=== PATIENT | male | born 1945 | race Caucasian/White ===

== ENCOUNTER → 2018-05-24 14:34 | Outpatient (CLI) | payer MEDICARE, OTHER, SELFPAY ==
--- NOTE | 2018-05-24 | DI.MRI.S_ITS ---
PROCEDURE: MR FEMUR LT WO CON INDICATIONS: Left inner thigh mass TECHNIQUE: Noncontrast coronal and sagittal T1 spin echo and STIR; axial T1 spin echo and T2 fast spin echo with fat saturation through the left femur. COMPARISON: None. FINDINGS: Image quality: Excellent. Bones: The visualized bone marrow demonstrates normal signal on all sequences. The overlying cortex appears intact. No fractures lines or intra-osseous lesions. Soft tissues: Within the left adductor camille, there is a large heterogeneous focus with T2 hyperintense/fluid, and fat signal intensity measuring 5.0 x 6.6 cm. Heterogeneous appearance of the upper aspect with possible small internal soft tissue nodules, image 22 series 4. This closely abuts the femoral vessels at the inferior aspect. IMPRESSION: Heterogeneous mass with T2 hyperintense and fat signal intensity, suspicious for liposarcoma especially given the complex nodular appearance of the upper aspect. This closely abuts the femoral vessels at the inferior aspect. At the upper aspect there is a preserved muscle plane between the mass and the femoral vessels. Further evaluation is recommended with contrast-enhanced study. Recommend oncologic surgical consultation. Dictated by: Nikolas Cedillo M.D. on 05/24/2018 at 16:54 Approved by: Nikolas Cedillo M.D. on 05/24/2018 at 16:59
== END ==
PROVIDERS: PCP Internal Medicine; Visit Provider Internal Medicine
DX: R22.42 Localized swelling, mass and lump, left lower limb (principal); M89.9 Disorder of bone, unspecified; R29.890 Loss of height
CPT/HCPCS: 73718; 77080

== ENCOUNTER 2018-06-16 15:19 | Emergency (ER) | payer MEDICARE, OTHER, SELFPAY ==
[2018-06-16 15:26] VITALS: BP 125/72; PULSE 66; RESP 15; TEMP 36.4; O2SAT 98; BMI 23.6
--- NOTE | 2018-06-16 15:39 | DI.CT.S_ITS ---
PROCEDURE: CT HEAD/BRAIN WO CON INDICATIONS: double vision x 2 days TECHNIQUE: Noncontrast 4.5 mm thick angled axial sections acquired from the foramen magnum to the vertex, with coronal and sagittal reformats. For radiation dose reduction, the following was used: automated exposure control, adjustment of mA and/or kV according to patient size. COMPARISON: None. FINDINGS: Image quality: Excellent. CSF spaces: Basal cisterns are patent. No extra-axial fluid collections. The ventricles are symmetric in size and shape. Brain: No intracranial bleeds or masses. There is mild cerebral volume loss for age, with resultant ventricular and sulcal prominence. There are mild periventricular and deep white matter chronic small vessel ischemic changes. There is intracranial internal carotid artery atherosclerosis. Skull and face: Calvarium and visualized facial bones appear intact, without suspicious lesions. Sinuses: Visualized sinuses and mastoids are clear. IMPRESSION: 1. No acute intracranial abnormalities. 2. Mild cerebral volume loss and chronic microvascular ischemic changes. Dictated by: Danny Rivero M.D. on 06/16/2018 at 16:19 Approved by: Danny Rivero M.D. on 06/16/2018 at 16:22
--- NOTE | 2018-06-16 16:01 | ED.EYEPROB ---
HPI - Eye Problem General Chief complaint: Eye Problems Stated complaint: DOUBLE VISION Time Seen by Provider: 06/16/18 15:27 Source: patient Mode of arrival: ambulatory Limitations: no limitations History of Present Illness HPI Narrative: Patient is a 78-year-old male who presents with sudden onset of double vision with both eyes open which resolves while closing 1 eye, it does not matter which are high. His this started 2 days ago it has been persistent. It started while he was reading the paper. He has no other focal deficits. He now has a slight headache which she has taken Tylenol for. chief complaint: vision change Related Data Allergies Allergy/AdvReac Type Severity Reaction Status Date / Time No Known Drug Allergies Allergy Verified 06/16/18 15:26 Review of Systems Review of Systems All systems reviewed & are unremarkable except as noted in HPI and below Constitutional Denies chills, Denies fever(s), Denies lethargy and Denies weakness Eyes Reports as per HPI Cardiovascular Denies chest pain, Denies irregular heart rhythm, Denies lightheadedness, Denies palpitations, Denies dyspnea, Denies dyspnea on exertion and Denies orthopnea Respiratory Denies cough, Denies dyspnea, Denies dyspnea on exertion and Denies wheezing Gastrointestinal Gastrointestinal: Denies abdominal pain, Denies change in bowel habits, Denies diarrhea, Denies nausea and Denies vomiting Musculoskeletal Denies back pain, Denies muscle weakness, Denies numbness and Denies tingling Integumentary/Breasts Denies pruritus, Denies erythema, Denies rash and Denies wounds Neurologic Denies numbness, Denies tingling and Denies weakness Endocrine Denies palpitations Allergic/Immunologic Denies wheezing [facility] Medical History Healthy adult (Acute) Social History Smoking Status: Never smoker Exam Initial Vital Signs Initial Vital Signs: Vital Signs Temperature 97.5 F L 06/16/18 15:26 Pulse Rate 66 06/16/18 15:26 Respiratory Rate 15 06/16/18 15:26 Blood Pressure 125/72 06/16/18 15:26 Pulse Oximetry 98 06/16/18 15:26 GENERAL: Alert cooperative male no acute distress HEENT: Head atraumatic,EOMI, pupils reactive, face symmetric, moist mucous membranes EYES: EOMI, JUVENCIO, pressure in left eye 20mm Hg, pressure in right eye 20mmHg, both eyes were stained with fluorescein no dye uptake CARDIOVASCULAR: Regular rate and rhythm without murmurs, rubs or gallops. RESPIRATORY: Breath sounds equal bilaterally, no wheezes rales or rhonchi. ABDOMEN: Soft, nontender. Normoactive bowel sounds all 4 quadrants. No guarding or rebound. EXTREMITIES: Normal range of motion, no clubbing or edema. Neurovascularly intact NEUROLOGICAL: Alert and oriented x4.Normal gait and speech. Cranial nerves II through XII grossly intact. Good hcwobf-ha-brxy, good nzpk-sm-hdtc, strength equal bilaterally, no dysarthria or aphasia, sensation in tact to soft touch bilaterally, no visual changes, no facial droop SKIN: Warm, dry, no laceration, no petechiae, no rashes or lesions. Scores NIH Stroke Scale Level of Conciousness: Alert, keenly responsive Ask month/age: Answers both questions correctly. Open/close eyes, close hand: Performs both tasks correctly Best gaze horizontal: Normal Visual avalos: No visual loss Facial palsy: Normal symetrical movement Left arm drift: No drift for full 10 sec Right arm drift: No drift for full 10 sec Left leg drift: No drift for full 10 sec Right leg drift: No drift for full 10 sec Limb ataxia: Absent Sensory on face/arms/legs: Normal, no sensory loss Best language: No aphasia, normal Dysarthria: Normal Extinction or inattention: No abnormality Total NIH Stroke scale score: 0 Course Orders Ordered: ED Orders 06/16/18 15:39 CT head/brain wo con Stat EKG-12 Lead Stat 06/16/18 16:00 Complete Blood Count AUTO DIFF Stat Comprehensive Metabolic Panel Stat Partial Thromboplastin Time Stat Prothrombin Time INR Stat Vital Signs - 8 hr 06/16/18 15:26 06/16/18 16:30 Temperature 97.5 F L Pulse Rate 66 62 Respiratory Rate 15 16 Blood Pressure 125/72 Blood Pressure [Left Arm] 125/70 Pulse Oximetry 98 98 MDM - Eye Problem Lab Data Attestation: I reviewed the patient's lab results. Result diagrams: 06/16/18 16:00 06/16/18 16:00 Lab Results 06/16/18 06/16/18 06/16/18 Range/Units 16:00 16:00 16:00 WBC 9.4 (4.5-11.0) X10^3/uL RBC 4.88 (4.5-5.9) X10^6/uL Hgb 15.8 (13.5-17.5) g/dL Hct 45.7 (41-53) % MCV 93.7 (80-100) fL MCH 32.4 (26-34) PG MCHC 34.6 (30-36) % RDW 13.7 (11.6-14.8) % Plt Count 210 (150-400) X10^3/uL Neut % (Auto) 69.6 (50-75) % Lymph % (Auto) 19.4 L (25-40) % [place] % (Auto) 8.1 (3-14) % Eos % (Auto) 2.2 (2-4) % Baso % (Auto) 0.7 (0-2) % Neut # (Auto) 6500 H (7964-2635) /uL PT 11.7 (10.1-12.7) SECONDS INR 1.1 (0.9-1.3) APTT 31 (26.4-36.2) SECONDS Sodium 142 (137-145) mmol/L Potassium 4.2 (3.4-5.1) mmol/L Chloride 107 (98-107) mmol/L Carbon Dioxide 25 (22-32) mmol/L BUN 24 H (9-20) mg/dL Creatinine 0.80 (0.66-1.25) mg/dL Estimated GFR > 60.0 (>60) mL/min BUN/Creatinine Ratio 30.0 H (6-22) Glucose 104 (80-110) mg/dL Calcium 9.6 (8.4-10.2) mg/dL Total Bilirubin 0.5 (0.2-1.3) mg/dL AST 26 (17-59) IU/L ALT 43 (21-72) IU/L Alkaline Phosphatase 71 (38-126) U/L Total Protein 6.7 (6.3-8.2) g/dL Albumin 4.2 (3.5-5.0) g/dL Globulin 2.5 (1.7-4.1) g/dL Albumin/Globulin Ratio 1.7 (1.0-2.8) Imaging Data CT scan - head: Radiologist's impression: PROCEDURE: CT HEAD/BRAIN WO CON INDICATIONS: double vision x 2 days TECHNIQUE: Noncontrast 4.5 mm thick angled axial sections acquired from the foramen magnum to the vertex, with coronal and sagittal reformats. For radiation dose reduction, the following was used: automated exposure control, adjustment of mA and/or kV according to patient size. COMPARISON: None. FINDINGS: Image quality: Excellent. CSF spaces: Basal cisterns are patent. No extra-axial fluid collections. The ventricles are symmetric in size and shape. Brain: No intracranial bleeds or masses. There is mild cerebral volume loss for age, with resultant ventricular and sulcal prominence. There are mild periventricular and deep white matter chronic small vessel ischemic changes. There is intracranial internal carotid artery atherosclerosis. Skull and face: Calvarium and visualized facial bones appear intact, without suspicious lesions. Sinuses: Visualized sinuses and mastoids are clear. IMPRESSION: 1. No acute intracranial abnormalities. 2. Mild cerebral volume loss and chronic microvascular ischemic changes. Dictated by: Danny Rivero M.D. on 06/16/2018 at 16:19 Approved by: Danny Rivero M.D. on 06/16/2018 at 16:22 ECG Data Attestation: I personally reviewed and interpreted this ECG as follows: Prior ECG tracings: not available for review Interpretation: Normal sinus rhythm rate [address] changes no T-wave inversions no sign of ischemia [place] 182 QRS 88 MDM Narrative Medical decision making narrative: Patient does not appear to have cranial nerve palsy no signs of retinal detachment pressure than eyes are equal. Head CT is negative. It does get better while 1 eye is closed. At this time recommend follow-up with Ophthalmology on Monday. Discharge Plan Departure Patient Disposition: Home Clinical Impression: Double vision with both eyes open Instructions: DI for Double Vision Activity Restrictions/Additional Instructions: *You have been diagnosed with double vision *What to do: Recommend you see Ophthalmology for further evaluation. At this time head CT and blood work within normal limits *Continue to take medications as directed *Follow up with your primary care provider in 2-3 days *Return to ER if you should have headache, extremity weakness, facial drooping or speech difficulty, any new, worsening or concerning symptoms Referrals: Teresa Rivero MD [Primary Care Provider] -
[2018-06-16 16:11] LABS: Add Manual Diff / Slide Review NO; Basophils Percent Auto 0.7 % (0-2); Eosinophils Percent Auto 2.2 % (2-4); Hematocrit 45.7 % (41-53); Hemoglobin 15.8 g/dL (13.5-17.5); Lymphocytes Percent Auto 19.4 % (25-40); Mean Corpuscular HGB Conc 34.6 % (30-36); Mean Corpuscular Hemoglobin 32.4 PG (26-34); Mean Corpuscular Volume 93.7 fL (80-100); Monocytes Percent Auto 8.1 % (3-14); Neutrophils Absolute Auto 6500 /uL (3000-5900); Neutrophils Percent Auto 69.6 % (50-75); Platelet Count 210 X10^3/uL (150-400); Red Blood Cell Count 4.88 X10^6/uL (4.5-5.9); Red Cell Distribution Width 13.7 % (11.6-14.8); White Blood Cell Count 9.4 X10^3/uL (4.5-11.0)
[2018-06-16 16:17] LABS: INR 1.1 (0.9-1.3); Prothrombin Time 11.7 SECONDS (10.1-12.7)
[2018-06-16 16:20] LABS: PTT Partial Thromboplastin Tim 31 SECONDS (26.4-36.2)
[2018-06-16 16:21] LABS: Alanine Aminotransferase 43 IU/L (21-72); Albumin 4.2 g/dL (3.5-5.0); Albumin Globulin Ratio 1.7 (1.0-2.8); Alkaline Phosphatase 71 U/L (38-126); Aspartate Aminotransferase 26 IU/L (17-59); Bilirubin Total 0.5 mg/dL (0.2-1.3); Blood Urea Nitrogen 24 mg/dL (9-20); Calcium 9.6 mg/dL (8.4-10.2); Carbon Dioxide 25 mmol/L (22-32); Chloride 107 mmol/L (98-107); Estimated Glomerular Filt Rate > 60.0 mL/min (>60); Globulin 2.5 g/dL (1.7-4.1); Glucose 104 mg/dL (80-110); HEMOLYSIS < 15 (0-50); Potassium 4.2 mmol/L (3.4-5.1); Sodium 142 mmol/L (137-145); Total Protein 6.7 g/dL (6.3-8.2)
[2018-06-16 16:30] VITALS: BP 125/70; PULSE 62; RESP 16; O2SAT 98
[2018-06-16] MEDS: PROPARACAINE 0.5% OPHTH SOL 1 DROPS EYE-BOTH (17:04)
[2018-06-16 17:23] VITALS: BP 134/75; PULSE 62; RESP 17; O2SAT 97
== END 2018-06-16 17:25 | disposition home or self-care (01) ==
PROVIDERS: Emergency Provider Emergency Medicine; PCP Internal Medicine
DX: H53.2 Diplopia (principal)
CPT/HCPCS: 36591; 70450; 80053; 85025; 85610; 85730; 93005; 99282; 99285

== ENCOUNTER → 2018-06-26 07:32 | Outpatient (CLI) | payer MEDICARE, OTHER, SELFPAY ==
--- NOTE | 2018-06-26 | DI.MRI.S_ITS ---
PROCEDURE: MR STROKE Pre- and post-contrast brain MRI, non-contrast brain MR angiogram, pre- and postcontrast neck MR angiogram INDICATIONS: DOUBLE VISION TECHNIQUE: Brain: Noncontrast axial T1 spin echo, axial T2 fast spin echo, sagittal and axial FLAIR, coronal T2 fast spin echo, axial gradient echo, axial diffusion and ADC through the brain. After the administration of contrast, axial 3D VIBE of the cranial vasculature and brain. Brain MRA: Non-contrast 3-D time of flight MR angiogram, with multiple ssshszf-eydvuwnva-riwgxofsbi (MIP) reformats performed. Neck MRA: Axial and sagittal TruFISP through the neck. Coronal dynamic MR angiogram during administration of contrast in the arterial and venous phases, with 3-dimenstional xxqotbv-unemkqjmb-rrwrmpuueg (MIP) reformats constructed from subtraction images. COMPARISON: [facility], CT, CT HEAD/BRAIN WO CON, 06/16/2018, 15:37. FINDINGS: Image quality: Excellent. BRAIN: The ventricular system and cortical sulci demonstrate atrophy, consistent for the patient's stated age. There are areas of increased T2/FLAIR signal intensity within the periventricular and subcortical white matter. There is no acute intra-or extra axial fluid collection. No acute hemorrhage, mass lesion or midline shift. Brainstem is unremarkable. There are no areas of restricted diffusion. Globes are symmetrical. Sinuses are aerated. Osseous structures are intact. BRAIN MR ANGIOGRAM: Anterior circulation: Intracranial internal carotid arteries are normal in size and enhancement. The flow within the paired anterior cerebral arteries is normal and symmetric. The flow within the middle cerebral arteries is normal and symmetric. The anterior communicating artery is seen. No stenoses, occlusions, or aneurysms. Posterior circulation: The visualized portions of the vertebral arteries demonstrate normal caliber, and join to form a normal appearing basilar artery. The flow within the posterior cerebral arteries is normal and symmetric. No stenoses, occlusions, or aneurysms. NECK MR ANGIOGRAM: The origins of the left and right common, left internal and bilateral external carotid arteries demonstrate no areas of hemodynamically significant stenosis, vascular occlusion or aneurysmal dilation. There is approximate 50% narrowing at the origin of the right internal carotid artery. Origins of the left and right vertebral arteries demonstrate no areas of hemodynamically significant stenosis, vascular occlusion or aneurysmal dilation. Aortic arch demonstrates conventional anatomy. Limited, visualized portions subclavian vasculature are unremarkable. IMPRESSION: 1. No acute intracranial process. No acute ischemia. 2. Moderate atrophy and chronic microvascular ischemic changes. 3. No areas of hemodynamically significant stenosis, vascular occlusion or aneurysmal dilation within the anterior or posterior circulation. 4. Approximate 50% stenosis of the origin of the right internal carotid artery. Dictated by: Mayelin Eng M.D. on 06/26/2018 at 12:33 Approved by: Mayelin Eng M.D. on 06/26/2018 at 12:38
== END ==
PROVIDERS: PCP Internal Medicine; Visit Provider Physician Assistant
DX: H53.2 Diplopia (principal); I65.21 Occlusion and stenosis of right carotid artery
CPT/HCPCS: 70553

== ENCOUNTER → 2018-07-05 09:03 | Outpatient (CLI) | payer MEDICARE, OTHER, SELFPAY ==
[2018-07-05 10:40] LABS: Alanine Aminotransferase 36 IU/L (21-72); Aspartate Aminotransferase 27 IU/L (17-59); BUN Creatinine Ratio 28.8 (6-22); Blood Urea Nitrogen 23 mg/dL (9-20); Calcium 9.8 mg/dL (8.4-10.2); Carbon Dioxide 28 mmol/L (22-32); Chloride 104 mmol/L (98-107); Cholesterol 152 mg/dL (140-199); Estimated Glomerular Filt Rate > 60.0 mL/min (>60); Glucose 98 mg/dL (80-110); HDL Cholesterol 65 mg/dL (40-60); HEMOLYSIS < 15 (0-50); LDL Cholesterol Calculated 75 mg/dL (<100); Sodium 143 mmol/L (137-145); Triglycerides 62 mg/dL (35-150)
== END ==
PROVIDERS: PCP Internal Medicine; Visit Provider Internal Medicine
DX: Z00.00 Encounter for general adult medical examination without abnormal findings (principal); E78.5 Hyperlipidemia, unspecified
CPT/HCPCS: 36415; 80048; 80061; 84450; 84460; G0103

== ENCOUNTER → 2019-01-03 08:53 | Outpatient (CLI) | payer MEDICARE, OTHER, SELFPAY ==
[2019-01-03 09:51] LABS: Alanine Aminotransferase 36 IU/L (21-72); Aspartate Aminotransferase 29 IU/L (17-59); Cholesterol 133 mg/dL (140-199); HDL Cholesterol 54 mg/dL (40-60); LDL Cholesterol Calculated 69 mg/dL (<100); Triglycerides 50 mg/dL (35-150)
== END ==
PROVIDERS: PCP Internal Medicine; Visit Provider Internal Medicine
DX: E78.5 Hyperlipidemia, unspecified (principal)
CPT/HCPCS: 36415; 80061; 84450; 84460

== ENCOUNTER → 2019-07-12 07:52 | Outpatient (CLI) | payer MEDICARE, OTHER, SELFPAY ==
[2019-07-12 09:05] LABS: Alanine Aminotransferase 52 IU/L (<50); Aspartate Aminotransferase 34 IU/L (17-59); BUN Creatinine Ratio 27.5 (6-22); Blood Urea Nitrogen 22 mg/dL (9-20); Calcium 9.5 mg/dL (8.4-10.2); Carbon Dioxide 29 mmol/L (22-32); Chloride 102 mmol/L (98-107); Cholesterol 154 mg/dL (140-199); Estimated Glomerular Filt Rate > 60.0 mL/min (>60); Glucose 96 mg/dL (80-110); HDL Cholesterol 51 mg/dL (40-60); HEMOLYSIS < 15 (0-50); LDL Cholesterol Calculated 90 mg/dL (<100); Potassium 4.9 mmol/L (3.4-5.1); Sodium 138 mmol/L (137-145); Triglycerides 63 mg/dL (35-150)
[2019-07-16 10:59] LABS: PSA Post Prostatectomy 1.11 ng/mL
== END ==
PROVIDERS: PCP Internal Medicine; Visit Provider Internal Medicine
DX: Z13.1 Encounter for screening for diabetes mellitus (principal); Z12.5 Encounter for screening for malignant neoplasm of prostate; E78.5 Hyperlipidemia, unspecified
CPT/HCPCS: 36415; 80048; 80061; 84153; 84450; 84460; G0103

== ENCOUNTER → 2019-09-04 12:31 | Outpatient (CLI) | payer MEDICARE, OTHER, SELFPAY ==
--- NOTE | 2019-09-04 | DI.RAD.S_ITS ---
PROCEDURE: XR PELVIS 1-2V INDICATIONS: Pelvic Pain TECHNIQUE: Single frontal view of the pelvis acquired. COMPARISON: None. FINDINGS: Bones: No fractures or dislocations. No suspicious bony lesions. Soft tissues: Visualized bowel gas pattern is normal. No suspicious soft tissue calcifications. IMPRESSION: Right greater than left mild to moderate degenerative hip joint space narrowing. No significant osteophytic spurring or effusion/loose body. Dictated by: Rainer Zamorano M.D. on 09/04/2019 at 13:01 Approved by: Rainer Zamorano M.D. on 09/04/2019 at 13:02
== END ==
PROVIDERS: PCP Internal Medicine; Referring Provider Internal Medicine; Visit Provider Internal Medicine
DX: R10.2 Pelvic and perineal pain (principal); M16.0 Bilateral primary osteoarthritis of hip
CPT/HCPCS: 72170

== ENCOUNTER → 2020-12-04 19:20 | Outpatient (ROUT) | payer MEDICARE, OTHER, SELFPAY ==
[2020-12-04 20:00] LABS: Alanine Aminotransferase 44 IU/L (<50); Albumin 4.1 g/dL (3.5-5.0); Albumin Globulin Ratio 1.6 (1.0-2.8); Alkaline Phosphatase 84 U/L (38-126); Aspartate Aminotransferase 40 IU/L (17-59); Bilirubin Total 0.5 mg/dL (0.2-1.3); Blood Urea Nitrogen 19 mg/dL (9-20); Calcium 9.6 mg/dL (8.4-10.2); Carbon Dioxide 29 mmol/L (22-32); Chloride 104 mmol/L (98-107); Cholesterol 156 mg/dL (140-199); Estimated Glomerular Filt Rate > 60.0 mL/min (>60); Globulin 2.6 g/dL (1.7-4.1); Glucose 85 mg/dL (80-110); HDL Cholesterol 60 mg/dL (40-60); HEMOLYSIS < 15 (0-50); LDL Cholesterol Calculated 86 mg/dL (<100); Potassium 5.2 mmol/L (3.4-5.1); Sodium 140 mmol/L (137-145); Total Protein 6.7 g/dL (6.3-8.2); Triglycerides 51 mg/dL (35-150)
[2020-12-08 05:37] LABS: PSA Free % 27.9 % (.); PSA, Total 1.4 ng/mL (0.0-4.0)
== END ==
PROVIDERS: PCP Internal Medicine; Visit Provider Internal Medicine
DX: E78.5 Hyperlipidemia, unspecified (principal); Z12.5 Encounter for screening for malignant neoplasm of prostate
CPT/HCPCS: 80053; 80061; 84153; 84154

== ENCOUNTER → 2020-12-08 08:06 | Outpatient (CLI) | payer MEDICARE, OTHER, SELFPAY ==
--- NOTE | 2020-12-08 | DI.US.S_ITS ---
PROCEDURE: US CAROTID DOPPLER BI INDICATIONS: OCCLUSION AND STENOSIS OF CAROTID ARTERIES TECHNIQUE: Color and pulse Doppler interrogation was performed of both carotid systems, with image documentation and velocity measurements. COMPARISON: None. FINDINGS: Stenosis calculations are based on SRU (Society of Radiologists in Ultrasound) criteria. The flow velocities and the arterial waveforms are normal within both carotid arterial systems. Atherosclerotic plaque is seen on both sides. The estimated degree of internal carotid artery stenosis is less than 50%. Antegrade flow is confirmed within both vertebral arteries. Incidental note is made of several thyroid nodules, with the following imaging characteristics: Left mid thyroid: 7 x 6 x 5 mm Hypoechoic, solid-appearing, smooth borders, without calcifications Right mid thyroid, 7 x 7 x 4 mm, hypoechoic, solid-appearing with smooth borders and no calcification new line right inferior thyroid, 8 x 10 x 6 mm, isoechoic/hypoechoic, solid-appearing, smooth borders, no calcification Right superior thyroid, 6 x 4 x 3 mm hypoechoic, solid-appearing, smooth borders, without calcification Each of these thyroid nodules is wider than tall. IMPRESSION: No hemodynamically significant stenosis is seen. Atherosclerotic plaque is noted bilaterally. For thyroid nodules are incidentally noted. By published criteria, no specific imaging follow-up would be recommended. However, attention should be paid to these nodules on any future follow-up studies through the region. Dictated by: Izaiah Mcdaniel M.D. on 12/08/2020 at 10:54 Approved by: Izaiah Mcdaniel M.D. on 12/08/2020 at 10:58
== END ==
PROVIDERS: PCP Internal Medicine; Referring Provider Internal Medicine; Visit Provider Internal Medicine
DX: I65.23 Occlusion and stenosis of bilateral carotid arteries (principal); E04.2 Nontoxic multinodular goiter
CPT/HCPCS: 93880

== ENCOUNTER → 2022-09-14 11:45 | Outpatient (CLI) | payer MEDICARE, OTHER, SELFPAY ==
--- NOTE | 2022-09-14 | DI.RAD.S_ITS ---
PROCEDURE: XR LUMBAR SPINE 2-3V INDICATIONS: low back pain without sciatica TECHNIQUE: 3 views of the lumbar spine were acquired. COMPARISON: None. FINDINGS: Bones: 5 rtc-bve-feaariy vertebrae are present. There is mild levoscoliosis of thoracolumbar spine with apex at L4-5 level. Loss of disc height, degenerative endplate changes and bilateral facet arthrosis throughout lumbar spine is seen. Partial bony union at L3-4 level is noted. No vertebral body compression fractures. No suspicious bony lesions. Soft tissues: Overlying bowel gas pattern is normal. No suspicious soft tissue calcifications. 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 No acute compression fracture or significant spondylolisthesis. Partial bony fusion at L3-4 level. Dictated by: Mayank Noriega M.D. on 09/14/2022 at 14:28 Approved by: Mayank Noriega M.D. on 09/14/2022 at 14:29
== END ==
PROVIDERS: PCP Internal Medicine; Referring Provider Internal Medicine; Visit Provider Internal Medicine
DX: M51.36 Other intervertebral disc degeneration, lumbar region (principal); M43.26 Fusion of spine, lumbar region; M54.50 Low back pain, unspecified
CPT/HCPCS: 72100

== ENCOUNTER 2022-12-31 12:50 | Emergency (ER) | payer MEDICARE, OTHER, SELFPAY ==
[2022-12-31 12:58] VITALS: BP 171/74; PULSE 64; RESP 14; TEMP 36.1; O2SAT 99; BMI 25.8
--- NOTE | 2022-12-31 13:03 | DI.RAD.S_ITS ---
PROCEDURE: XR CHEST 1V INDICATIONS: chest pain TECHNIQUE: One view of the chest was acquired. COMPARISON: None. FINDINGS: Surgical changes and devices: None. Lungs and pleura: Lungs are clear. No pleural effusions or pneumothorax. Mediastinum: Mediastinal contours appear normal. Heart size is normal. Bones and chest wall: No suspicious bony lesions. Degenerative changes without acute osseous abnormality. Overlying soft tissues appear unremarkable. IMPRESSION: No evidence of an acute cardiopulmonary abnormality. Dictated by: Jerrell Ramirez D.O. on 12/31/2022 at 12:57 Approved by: Jerrell Ramirez D.O. on 12/31/2022 at 12:58
[2022-12-31 14:08] LABS: Alanine Aminotransferase 38 IU/L (<50); Albumin 4.5 g/dL (3.5-5.0); Albumin Globulin Ratio 1.6 (1.0-2.8); Alkaline Phosphatase 101 U/L (38-126); Aspartate Aminotransferase 26 IU/L (17-59); BUN Creatinine Ratio 32.1 (6-22); Bilirubin Total 0.7 mg/dL (0.2-1.3); Blood Urea Nitrogen 25 mg/dL (9-20); Calcium 9.3 mg/dL (8.4-10.2); Carbon Dioxide 28 mmol/L (22-32); Chloride 104 mmol/L (98-107); Creatine Kinase 94 U/L (55-170); Estimated Glomerular Filt Rate > 60 mL/min (>60); Globulin 2.9 g/dL (1.7-4.1); Glucose 132 mg/dL (80-110); HEMOLYSIS < 15 (0-50); Lipase 102 U/L (23-300); Magnesium 2.1 mg/dL (1.6-2.3); Potassium 4.3 mmol/L (3.4-5.1); Sodium 139 mmol/L (137-145); Total Protein 7.4 g/dL (6.3-8.2)
[2022-12-31 14:09] LABS: INR 1.1 (0.9-1.3); Prothrombin Time 12.1 SECONDS (10.1-12.7)
[2022-12-31 14:11] LABS: PTT Partial Thromboplastin Tim 31 SECONDS (26-36)
[2022-12-31 14:12] LABS: Add Manual Diff / Slide Review NO; Basophils Absolute Auto 100 /uL (0-100); Basophils Percent Auto 0.6 % (0-2); Eosinophils Absolute Auto 200 /uL (0-450); Eosinophils Percent Auto 2.1 % (2-4); Hematocrit 45.8 % (41-53); Hemoglobin 15.6 g/dL (13.5-17.5); Lymphocytes Absolute Auto 1300 /uL (1100-4500); Lymphocytes Percent Auto 13.3 % (25-40); Mean Corpuscular Hemoglobin 31.7 PG (26-34); Mean Corpuscular Volume 93.4 fL (80-100); Monocytes Absolute Auto 500 /uL (0-900); Monocytes Percent Auto 5.4 % (3-14); Neutrophils Absolute Auto 7900 /uL (1500-7000); Neutrophils Percent Auto 78.6 % (50-75); Platelet Count 218 X10^3/uL (150-400); Red Blood Cell Count 4.91 X10^6/uL (4.5-5.9); Red Cell Distribution Width 13.8 % (11.6-14.8)
[2022-12-31 14:19] LABS: Troponin I < 0.012 ng/mL (0.01-0.034)
--- NOTE | 2022-12-31 16:19 | ED.DIZZY ---
HPI - Dizziness <JAMES Gibbs - Last Filed: 12/31/22 18:33> General Chief Complaint: Dizziness Stated Complaint: vomiting, dizzy Time Seen by Provider: 12/31/22 16:18 Source: patient Mode of arrival: Ambulatory History of Present Illness HPI Narrative: 77-year-old male, never smoker, presents to the emergency department after developing rapid onset dizziness with subsequent nausea and vomiting since 11:30 a.m. today. Symptoms worsen with body movement. Patient had similar episodes in the past that was not diagnosed as BPPV but was treated with physical therapy exercises, that he continues to use daily. 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 Patient and spouse would like to a head CT as symptoms just started. Patient denies any blurry vision, headache pain, recent illness or trauma to his head. Hx of carotid artery occlusion. Related Data Allergies Allergy/AdvReac Type Severity Reaction Status Date / Time No Known Drug Allergies Allergy Verified 12/31/22 12:58 Review of Systems <JAMES Gibbs - Last Filed: 12/31/22 18:33> Review of Systems Narrative: Narrative: See HPI. GENERAL: Denies chills, fatigue, fever, sweats. HEENT: Denies sinus pain, ear pain, sore throat, difficulty swallowing. RESPIRATORY: Denies dyspnea, cough, wheezing, sputum. CARDIOVASCULAR: Denies chest pain, palpitations, edema. GASTROINTESTINAL: Denies nausea, vomiting, abdominal pain, diarrhea, constipation. : Denies dysuria, frequency, incontinence, hematuria, urinary retention, flank pain. MSK: Denies weakness, joint pain, or bony pain. SKIN: Denies rash, skin lesions, or pruritis. NEUROLOGIC: Denies weakness, headache, numbness, confusion. Endorses dizziness. PSYCHIATRIC: No concerning psychosocial issues. Patient History <JAMES Gibbs - Last Filed: 12/31/22 18:33> Medical History Healthy adult Social History Smoking Status: Never smoker Smoking Status: Never smoker alcohol intake frequency: 0-2 drinks per day Substance Use Type: does not use Exam <JAMES Gibbs - Last Filed: 12/31/22 18:33> Narrative Exam Narrative: Exam Narrative: GENERAL: This is a well-nourished, well-developed patient, in no acute distress. HEAD: Atraumatic. Normocephalic. EYES: Pupils equal round and reactive. Extraocular motions intact. No scleral icterus, injection or drainage. ENT: Nose without bleeding, purulent drainage. Throat without erythema, tonsillar hypertrophy or exudate. Uvula midline. Airway patent. TMs and canals clear. No sinus tenderness. NECK: Trachea midline. No JVD. CARDIOVASCULAR: Regular rate and rhythm without murmurs, peripheral pulses intact, cap refill <2 sec. RESPIRATORY: Breath sounds equal and clear bilaterally. No wheezes, rales, or rhonchi. No cough. No increased respiratory effort. No accessory muscle use. GASTROINTESTINAL: Abdomen soft, non-tender, nondistended without guarding or rebound. No suprapubic pain. MSK: Moves all extremities. Normal range of motion, no clubbing or edema. Neurovascularly intact. NEURO: A&O x 3. Positive Peyton-Hallpike with emesis. Judy maneuver conducted without improvement of symptoms. SKIN: Warm, dry, no rashes or lesions noted. Initial Vital Signs Initial Vital Signs: Vital Signs Temperature 97.0 F L 12/31/22 12:58 Pulse Rate 64 12/31/22 12:58 Respiratory Rate 14 12/31/22 12:58 Blood Pressure 171/74 H 12/31/22 12:58 Pulse Oximetry 99 12/31/22 12:58 Oxygen Delivery Method Room Air 12/31/22 12:58 Reviewed <Marion Fonseca DO - Last Filed: 01/01/23 07:37> Initial Vital Signs Initial Vital Signs: Vital Signs Temperature 97.0 F L 12/31/22 12:58 Pulse Rate 64 12/31/22 12:58 Respiratory Rate 14 12/31/22 12:58 Blood Pressure 171/74 H 12/31/22 12:58 Pulse Oximetry 99 12/31/22 12:58 Oxygen Delivery Method Room Air 12/31/22 12:58 Course <JAMES Gibbs - Last Filed: 12/31/22 18:33> Orders Ordered: Discontinued Medications Aspirin (Aspirin 81 Mg Chew Tab) 324 mg PO NOW ONE Stop: 12/31/22 13:04 Last Admin: 12/31/22 14:39 Dose: Not Given Documented By: SUZIE Sodium Chloride (Normal Saline 0.9%) 1,000 mls @ 1,000 mls/hr IV BOLUS ONE Stop: 12/31/22 18:22 Last Admin: 12/31/22 17:58 Dose: 1,000 mls/hr Documented By: MARITA Meclizine HCl (Meclizine Hcl 12.5 Mg Tablet) 50 mg PO NOW ONE Stop: 12/31/22 17:23 Last Admin: 12/31/22 17:58 Dose: 50 mg Documented By: MARITA Ondansetron HCl (Ondansetron 4 Mg Odt) 4 mg SL NOW ONE Stop: 12/31/22 17:23 Last Admin: 12/31/22 17:57 Dose: 4 mg Documented By: MARITA Ondansetron HCl (Ondansetron 4 Mg Odt Prepack) 1 bottle MISC SEEINSTR ONE Stop: 12/31/22 18:30 Last Admin: 12/31/22 18:36 Dose: 1 bottle Documented By: MARITA Vital Signs Vital signs: Vital Signs - 8 hr 12/31/22 12:58 12/31/22 18:08 Temperature 97.0 F L Pulse Rate 64 66 Respiratory Rate 14 18 Blood Pressure 171/74 H 178/84 H Pulse Oximetry 99 99 Oxygen Delivery Method Room Air Room Air <Marion Fonseca DO - Last Filed: 01/01/23 07:37> Orders Ordered: Discontinued Medications Aspirin (Aspirin 81 Mg Chew Tab) 324 mg PO NOW ONE Stop: 12/31/22 13:04 Last Admin: 12/31/22 14:39 Dose: Not Given Documented By: SUZIE Sodium Chloride (Normal Saline 0.9%) 1,000 mls @ 1,000 mls/hr IV BOLUS ONE Stop: 12/31/22 18:22 Last Admin: 12/31/22 17:58 Dose: 1,000 mls/hr Documented By: MARITA Meclizine HCl (Meclizine Hcl 12.5 Mg Tablet) 50 mg PO NOW ONE Stop: 12/31/22 17:23 Last Admin: 12/31/22 17:58 Dose: 50 mg Documented By: MARITA Ondansetron HCl (Ondansetron 4 Mg Odt) 4 mg SL NOW ONE Stop: 12/31/22 17:23 Last Admin: 12/31/22 17:57 Dose: 4 mg Documented By: MARITA Ondansetron HCl (Ondansetron 4 Mg Odt Prepack) 1 bottle MISC SEEINSTR ONE Stop: 12/31/22 18:30 Last Admin: 12/31/22 18:36 Dose: 1 bottle Documented By: RL Vital Signs Vital signs: Vital Signs - 8 hr 12/31/22 12:58 12/31/22 18:08 Temperature 97.0 F L Pulse Rate 64 66 Respiratory Rate 14 18 Blood Pressure 171/74 H 178/84 H Pulse Oximetry 99 99 Oxygen Delivery Method Room Air Room Air MDM - Dizziness <JAMES Gibbs - Last Filed: 12/31/22 18:33> Differential Diagnosis Differential diagnosis: Likely benign paroxysmal positional vertigo; Unlikely cerebrovascular accident, transient cerebral ischemia or other (Otitis media, ear effusion) Lab Data 12/31/22 13:45 12/31/22 13:45 Labs: Lab Results 12/31/22 12/31/22 12/31/22 Range/Units 13:45 13:45 13:45 WBC 10.0 (4.5-11.0) X10^3/uL RBC 4.91 (4.5-5.9) X10^6/uL Hgb 15.6 (13.5-17.5) g/dL Hct 45.8 (41-53) % MCV 93.4 (80-100) fL MCH 31.7 (26-34) PG MCHC 34.0 (30-36) % RDW 13.8 (11.6-14.8) % Plt Count 218 (150-400) X10^3/uL Neut % (Auto) 78.6 H (50-75) % Lymph % (Auto) 13.3 L (25-40) % [place] % (Auto) 5.4 (3-14) % Eos % (Auto) 2.1 (2-4) % Baso % (Auto) 0.6 (0-2) % Neut # (Auto) 7900 H (0677-9229) /uL Lymph # (Auto) 1300 (2460-9648) /uL [place] # (Auto) 500 (0-900) /uL Eos # (Auto) 200 (0-450) /uL Baso # (Auto) 100 (0-100) /uL PT 12.1 (10.1-12.7) SECONDS INR 1.1 (0.9-1.3) APTT 31 (26-36) SECONDS Sodium 139 (137-145) mmol/L Potassium 4.3 (3.4-5.1) mmol/L Chloride 104 (98-107) mmol/L Carbon Dioxide 28 (22-32) mmol/L BUN 25 H (9-20) mg/dL Creatinine 0.78 (0.66-1.25) mg/dL Estimated GFR > 60 (>60) mL/min BUN/Creatinine Ratio 32.1 H (6-22) Glucose 132 H (80-110) mg/dL Calcium 9.3 (8.4-10.2) mg/dL Magnesium 2.1 (1.6-2.3) mg/dL Total Bilirubin 0.7 (0.2-1.3) mg/dL AST 26 (17-59) IU/L ALT 38 (<50) IU/L Alkaline Phosphatase 101 (38-126) U/L Total Creatine Kinase 94 (55-170) U/L CK-MB (CK-2) TNP CK-MB (CK-2) Rel Index TNP Troponin I < 0.012 (0.01-0.034) ng/mL Total Protein 7.4 (6.3-8.2) g/dL Albumin 4.5 (3.5-5.0) g/dL Globulin 2.9 (1.7-4.1) g/dL Albumin/Globulin Ratio 1.6 (1.0-2.8) Lipase 102 (23-300) U/L Urine Dip Bedside Urine Glucose 1000 mg/dl Bedside Urine Bilirubin - Negative Bedside Urine Ketone +/- 5 Urine Specific [place] 1.015 Bedside Urine Occult Blood - Negative Bedside Urine pH 7.5 Bedside Urine Protein - Negative Bedside Urine Urobilinogen - Negative Bedside Urine Nitrite - Negative Bedside Urine Leukocytes - Negative Esterase Imaging Data Chest x-ray: Radiologist's Impression: [address] [address] XRay Report Signed Patient: Micah Banegas MR#: [id number] : 1945 Acct:[id number] Age/Sex: 77 / M Date of Service: 12/31/22 Loc: ED Accession Number: [id number] ?? Procedure: XR chest 1V Ordering Provider: Marion Fonseca D.O. PROCEDURE:? XR CHEST 1V ? INDICATIONS:? chest pain ? TECHNIQUE:? One view of the chest was acquired.? ? COMPARISON:? None. ? FINDINGS:? ? Surgical changes and devices:? None.? ? Lungs and pleura:? Lungs are clear.? No pleural effusions or pneumothorax.? ? Mediastinum:? Mediastinal contours appear normal.? Heart size is normal.? ? Bones and chest wall:? No suspicious bony lesions.? Degenerative changes without acute osseous abnormality.? Overlying soft tissues appear unremarkable.? ? IMPRESSION:? ? No evidence of an acute cardiopulmonary abnormality. ? ? Dictated by: Jerrell Ramirez D.O. on 12/31/2022 at 12:57 ? ? Approved by: Jerrell Ramirez D.O. on 12/31/2022 at 12:58 ? CT scan - head: Radiologist's Impression: [place] [address] CT Scan Report Signed Patient: Micah Banegas MR#: [id number] : 1945 Acct:[id number] Age/Sex: 77 / M Date of Service: 12/31/22 Loc: ED Accession Number: [id number] ?? Procedure: CT head/brain wo con Ordering Provider: Michele Burdick PROCEDURE:? CT HEAD/BRAIN WO CON ? INDICATIONS:? Dizziness ? TECHNIQUE:? Noncontrast 4.5 mm thick angled axial sections acquired from the foramen magnum to the vertex, with coronal and sagittal reformats.? For radiation dose reduction, the following was used:? automated exposure control, adjustment of mA and/or kV according to patient size.? ? COMPARISON:? [facility], CT, CT HEAD/BRAIN WO CON, 06/16/2018, 15:37. ? FINDINGS:? Image quality:? Excellent.? ? CSF spaces:? Basal cisterns are patent.? No extra-axial fluid collections.? The ventricles are symmetric in size and shape.? ? Brain:? No intracranial bleeds or masses.? There is cerebral volume loss for age, with resultant ventricular and sulcal prominence.? There are periventricular and deep white matter chronic small vessel ischemic changes.? There is intracranial internal carotid artery atherosclerosis.? ? Skull and face:? Calvarium and visualized facial bones appear intact, without suspicious lesions.? ? Sinuses:? Stable postsurgical changes of the paranasal sinuses with mild mucosal thickening of the imaged maxillary sinuses. ? IMPRESSION:? ? Stable senescent changes with mild microvascular ischemic changes.? No acute abnormality. ? Postsurgical changes of the paranasal sinuses with mild mucosal disease of the maxillary sinuses. ? ? Dictated by: Jerrell Ramirez D.O. on 12/31/2022 at 15:53 ? ? Approved by: Jerrell Ramirez D.O. on 12/31/2022 at 15:56 ? CT Angio head and neck: Radiologist's Impression: [place] [address] CT Scan Report Signed Patient: Micah Banegas MR#: [id number] : 1945 Acct:[id number] Age/Sex: 77 / M Date of Service: 12/31/22 Loc: ED Accession Number: [id number] ?? Procedure: CT angio head and neck Ordering Provider: Michele Burdick PROCEDURE:? CT ANGIO HEAD AND NECK ? INDICATIONS:? Dizziness/ hx of carotid occlusion ? TECHNIQUE:? ? After the administration of intravenous contrast, 1 mm thick sections acquired from the aortic arch through the [place] of Segura.? Post-contrast 4.5 mm thick sections then re-acquired from the foramen magnum to the vertex.? 3-dimensional yinanvj-jnwcnuwuq-gyfnosxshr (MIP) and/or volume rendering reformats were acquired of the central intracranial vasculature and neck separately. For radiation dose reduction, the following was used:? automated exposure control, adjustment of mA and/or kV according to patient size.? ? COMPARISON:? [facility], CT, CT HEAD/BRAIN WO CON, 12/31/2022, 16:43. ? FINDINGS:? Image quality:? Excellent.? ? BRAIN:? CSF spaces:? Ventricles are normal in size and shape.? Basal cisterns are patent.? No extra-axial fluid collections.? ? Brain:? No midline shift.? No intracranial bleeds or masses.? Iniguez-white matter interface appears intact.? No area of abnormal intracranial enhancement ? Skull and face:? Calvarium and facial bones appear intact, without suspicious lesions.? Orbits appear normal.? ? Sinuses:? Postsurgical changes in bilateral maxillary sinuses are again seen with mucosal thickening in left maxillary sinus. ? HEAD CT ANGIOGRAPHY:? Anterior circulation:? Intracranial internal carotid arteries are normal in size and flow.? The flow within the paired anterior cerebral arteries is normal and symmetric.? The flow within the middle cerebral arteries is normal and symmetric.? The anterior communicating artery is seen.? No aneurysms are seen.? ? Posterior circulation:? Visualized portions of the vertebral arteries demonstrate normal caliber, and join to form a normal appearing basilar artery.? Flow within the posterior cerebral arteries is normal and symmetric.? No aneurysms are seen.? ? NECK CT ANGIOGRAPHY:? Carotid system:? The great vessels demonstrate a conventional anatomy as they arise from the aortic arch.? The origins of the common carotid arteries appear patent.? The common carotid arteries demonstrate normal caliber and courses.? The bifurcation regions are both widely patent.? The internal carotid arteries demonstrate normal calibers and courses.? ? Posterior circulation:? The origins of the vertebral arteries both appear widely patent.? The more superior extracranial portions of both vertebral arteries also demonstrate normal courses and calibers.? They join to form a normal appearing basilar artery.? ? Soft tissues:? Visualized neck soft tissues demonstrate no suspicious abnormalities.? ? Bones:? No suspicious bony lesions.? Visualized cervical spine appears normally aligned.? IMPRESSION:? ? 1. No CT evidence of acute intracranial abnormalities.? No area of abnormal contrast enhancement. ? 2.? Postsurgical changes in bilateral maxillary sinuses with mucosal thickening and fluid in left maxillary sinus. ? 3. No hemodynamically significant stenosis or aneurysm is seen in the visualized intracranial circulation. ? 4. No hemodynamically significant stenosis is seen in bilateral neck arteries.? ? Any quantitative measurements of stenosis were performed using NASCET criteria.? ? ? Dictated by: Mayank Noriega M.D. on 12/31/2022 at 18:04 ? ? Approved by: Mayank Noriega M.D. on 12/31/2022 at 18:07? MDM Narrative Medical decision making narrative: 77-year-old male rapid onset dizziness since this afternoon. Assessment was encouraging. Labs were non concerning and chest x-ray was normal. Per patient and spouse request, obtained a head CT to rule out bleeding or stroke. CT was normal. Positive [place]-Hallpike with emesis and no improvement after Judy maneuver. Patient given ondansetron, meclizine and IV fluids with improved symptoms. CT Angio ordered d/t hx of carotid artery occlusion, which was non concerning. Will discharge patient home with Zofran and instructions to maintain proper oral hydration and take the rbeo-bsp-jzfaqij Dramamine for dizziness. Instructed patient to follow up with his family doctor as needed. Instructed patient and spouse to return to the emergency department for any worsening symptoms that include blurry vision, chest pain, shortness of breath or intolerable pain. Patient and spouse verbalized understanding and were agreeable with course of action. <Marion Fonseca, DO - Last Filed: 01/01/23 07:37> Lab Data Labs: Lab Results 12/31/22 12/31/22 12/31/22 Range/Units 13:45 13:45 13:45 WBC 10.0 (4.5-11.0) X10^3/uL RBC 4.91 (4.5-5.9) X10^6/uL Hgb 15.6 (13.5-17.5) g/dL Hct 45.8 (41-53) % MCV 93.4 (80-100) fL MCH 31.7 (26-34) PG MCHC 34.0 (30-36) % RDW 13.8 (11.6-14.8) % Plt Count 218 (150-400) X10^3/uL Neut % (Auto) 78.6 H (50-75) % Lymph % (Auto) 13.3 L (25-40) % [place] % (Auto) 5.4 (3-14) % Eos % (Auto) 2.1 (2-4) % Baso % (Auto) 0.6 (0-2) % Neut # (Auto) 7900 H (7824-1617) /uL Lymph # (Auto) 1300 (8979-3896) /uL [place] # (Auto) 500 (0-900) /uL Eos # (Auto) 200 (0-450) /uL Baso # (Auto) 100 (0-100) /uL PT 12.1 (10.1-12.7) SECONDS INR 1.1 (0.9-1.3) APTT 31 (26-36) SECONDS Sodium 139 (137-145) mmol/L Potassium 4.3 (3.4-5.1) mmol/L Chloride 104 (98-107) mmol/L Carbon Dioxide 28 (22-32) mmol/L BUN 25 H (9-20) mg/dL Creatinine 0.78 (0.66-1.25) mg/dL Estimated GFR > 60 (>60) mL/min BUN/Creatinine Ratio 32.1 H (6-22) Glucose 132 H (80-110) mg/dL Calcium 9.3 (8.4-10.2) mg/dL Magnesium 2.1 (1.6-2.3) mg/dL Total Bilirubin 0.7 (0.2-1.3) mg/dL AST 26 (17-59) IU/L ALT 38 (<50) IU/L Alkaline Phosphatase 101 (38-126) U/L Total Creatine Kinase 94 (55-170) U/L CK-MB (CK-2) TNP CK-MB (CK-2) Rel Index TNP Troponin I < 0.012 (0.01-0.034) ng/mL Total Protein 7.4 (6.3-8.2) g/dL Albumin 4.5 (3.5-5.0) g/dL Globulin 2.9 (1.7-4.1) g/dL Albumin/Globulin Ratio 1.6 (1.0-2.8) Lipase 102 (23-300) U/L Urine Dip Bedside Urine Glucose 1000 mg/dl Bedside Urine Bilirubin - Negative Bedside Urine Ketone +/- 5 Urine Specific [place] 1.015 Bedside Urine Occult Blood - Negative Bedside Urine pH 7.5 Bedside Urine Protein - Negative Bedside Urine Urobilinogen - Negative Bedside Urine Nitrite - Negative Bedside Urine Leukocytes - Negative Esterase ECG Data Interpretation: Raymundo: Sinus rhythm rate 60 SC interval 176 QRS 76 QTC 418 T-wave inversion noted in lead 3 similar to previous E[place] [address] elevations or depressions normal intervals. Discharge Plan Departure Patient Disposition: Home Clinical Impression: Vertigo Instructions: DI for Vertigo, DI for Dizziness-Nonvertigo Activity Restrictions/Additional Instructions: *You have been diagnosed with vertigo. Your labs, chest x-ray and head CTs were non concerning. I am glad that your symptoms have improved with the IV fluids, meclizine and Zofran. I will send you with a prepack of antinausea medication and you can take your ckqb-ntb-aaoxbex Dramamine for the dizziness symptoms. Please follow-up with your family doctor as needed. For any worsening symptoms that include chest pain, shortness of breath, intolerable pain, blurry vision, etc. please return to the emergency department immediately. *What to do: *Please continue to take your regular medications as directed. [ ] New medication prescriptions sent to your pharmacy: [ ] [ ] New medication written as a paper prescription [x ] No new medications given *Please follow up with your primary care provider in 2-3 days, call for an appointment. Let them know you were seen in the Emergency Department and that we ask that you be seen in follow up. We will electronically transmit a record of today's note if your PCP is in our system *If you do not have a primary care provider please contact the [facility] Resource line at [phone]. They will ask some questions about your medical history and help get you set up with a doctor in the community. ? Return to ER if you should have any new, worsening or concerning symptoms, such as worsening pain, severe headache, confusion, chest pain, difficulty breathing, fever greater than 101 F, shaking chills, persistent vomiting to the point that you cannot drink fluids, or other new or worsening symptoms. Referrals: Teresa Rivero MD [Primary Care Provider] - Stand Alone Forms: Patient Portal/API <Marion Fonseca DO - Last Filed: 01/01/23 07:37> [facility] ED Attending Taneshaature Attestation: I was immediately available in the department for consultation. Documentation has been reviewed.
--- NOTE | 2022-12-31 16:36 | DI.CT.S_ITS ---
PROCEDURE: CT HEAD/BRAIN WO CON INDICATIONS: Dizziness TECHNIQUE: Noncontrast 4.5 mm thick angled axial sections acquired from the foramen magnum to the vertex, with coronal and sagittal reformats. For radiation dose reduction, the following was used: automated exposure control, adjustment of mA and/or kV according to patient size. COMPARISON: [facility], CT, CT HEAD/BRAIN WO CON, 06/16/2018, 15:37. FINDINGS: Image quality: Excellent. CSF spaces: Basal cisterns are patent. No extra-axial fluid collections. The ventricles are symmetric in size and shape. Brain: No intracranial bleeds or masses. There is cerebral volume loss for age, with resultant ventricular and sulcal prominence. There are periventricular and deep white matter chronic small vessel ischemic changes. There is intracranial internal carotid artery atherosclerosis. Skull and face: Calvarium and visualized facial bones appear intact, without suspicious lesions. Sinuses: Stable postsurgical changes of the paranasal sinuses with mild mucosal thickening of the imaged maxillary sinuses. IMPRESSION: Stable senescent changes with mild microvascular ischemic changes. No acute abnormality. Postsurgical changes of the paranasal sinuses with mild mucosal disease of the maxillary sinuses. Dictated by: Jerrell Ramirez D.O. on 12/31/2022 at 15:53 Approved by: Jerrell Ramirez D.O. on 12/31/2022 at 15:56
--- NOTE | 2022-12-31 17:24 | DI.CT.S_ITS ---
PROCEDURE: CT ANGIO HEAD AND NECK INDICATIONS: Dizziness/ hx of carotid occlusion TECHNIQUE: After the administration of intravenous contrast, 1 mm thick sections acquired from the aortic arch through the Coram of Segura. Post-contrast 4.5 mm thick sections then re-acquired from the foramen magnum to the vertex. 3-dimensional yrxemib-zlsbpydrm-xwkluuhrva (MIP) and/or volume rendering reformats were acquired of the central intracranial vasculature and neck separately. For radiation dose reduction, the following was used: automated exposure control, adjustment of mA and/or kV according to patient size. COMPARISON: [facility], CT, CT HEAD/BRAIN WO CON, 12/31/2022, 16:43. FINDINGS: Image quality: Excellent. BRAIN: CSF spaces: Ventricles are normal in size and shape. Basal cisterns are patent. No extra-axial fluid collections. Brain: No midline shift. No intracranial bleeds or masses. Iniguez-white matter interface appears intact. No area of abnormal intracranial enhancement Skull and face: Calvarium and facial bones appear intact, without suspicious lesions. Orbits appear normal. Sinuses: Postsurgical changes in bilateral maxillary sinuses are again seen with mucosal thickening in left maxillary sinus. HEAD CT ANGIOGRAPHY: Anterior circulation: Intracranial internal carotid arteries are normal in size and flow. The flow within the paired anterior cerebral arteries is normal and symmetric. The flow within the middle cerebral arteries is normal and symmetric. The anterior communicating artery is seen. No aneurysms are seen. Posterior circulation: Visualized portions of the vertebral arteries demonstrate normal caliber, and join to form a normal appearing basilar artery. Flow within the posterior cerebral arteries is normal and symmetric. No aneurysms are seen. NECK CT ANGIOGRAPHY: Carotid system: The great vessels demonstrate a conventional anatomy as they arise from the aortic arch. The origins of the common carotid arteries appear patent. The common carotid arteries demonstrate normal caliber and courses. The bifurcation regions are both widely patent. The internal carotid arteries demonstrate normal calibers and courses. Posterior circulation: The origins of the vertebral arteries both appear widely patent. The more superior extracranial portions of both vertebral arteries also demonstrate normal courses and calibers. They join to form a normal appearing basilar artery. Soft tissues: Visualized neck soft tissues demonstrate no suspicious abnormalities. Bones: No suspicious bony lesions. Visualized cervical spine appears normally aligned. IMPRESSION: 1. No CT evidence of acute intracranial abnormalities. No area of abnormal contrast enhancement. 2. Postsurgical changes in bilateral maxillary sinuses with mucosal thickening and fluid in left maxillary sinus. 3. No hemodynamically significant stenosis or aneurysm is seen in the visualized intracranial circulation. 4. No hemodynamically significant stenosis is seen in bilateral neck arteries. Any quantitative measurements of stenosis were performed using NASCET criteria. Dictated by: Mayank Noriega M.D. on 12/31/2022 at 18:04 Approved by: Mayank Noriega M.D. on 12/31/2022 at 18:07
[2022-12-31] MEDS: ONDANSETRON 4 MG ODT SL (17:57)
[2022-12-31] MEDS: MECLIZINE HCL 12.5 MG TABLET 50 MG PO (17:58)
[2022-12-31] MEDS: SODIUM CHLORIDE 0.9% 1,000 ML 1000 ML IV (17:58)
[2022-12-31 18:08] VITALS: BP 178/84; PULSE 66; RESP 18; O2SAT 99
[2022-12-31] MEDS: ONDANSETRON 4 MG ODT PREPACK 1 BOTTLE MISC (18:36)
[2022-12-31 18:38] VITALS: BP 166/70
== END 2022-12-31 18:43 | disposition home or self-care (01) ==
PROVIDERS: Emergency Medicine; Emergency Provider Registered Nurse; PCP Internal Medicine
DX: R42 Dizziness and giddiness (principal); R11.2 Nausea with vomiting, unspecified; R07.9 Chest pain, unspecified
CPT/HCPCS: 36415; 70450; 70496; 70498; 71045; 80053; 81003; 82550; 83690; 83735; 84484; 85025; 85610; 85730; 93005; 93010; 99284; Q9967

== ENCOUNTER → 2023-02-02 19:05 | Outpatient (CLI) | payer MEDICARE, OTHER, SELFPAY ==
--- NOTE | 2023-02-02 | DI.MRI.S_ITS ---
PROCEDURE: MR ANGIO HEAD WO CON INDICATIONS: vertigo,persistant dizziness, fullness in ears TECHNIQUE: Noncontrast axial 3-D ajrc-ee-jzzxmp MR angiogram, with 3-dimensional maximum intensity projection (MIP) reformats of the internal carotid arteries and posterior circulation then performed. COMPARISON: [facility], CT, CT ANGIO HEAD AND NECK, 12/31/2022, 17:34. FINDINGS: Image quality: Excellent. Anterior circulation: Intracranial internal carotid arteries demonstrate normal size and intraluminal flow signal. The flow within the paired anterior cerebral arteries is normal and symmetric. The flow within the middle cerebral arteries is normal and symmetric. There is a median artery of the corpus callosum (normal variant). The anterior communicating artery is seen. No stenoses, occlusions, or aneurysms. Posterior circulation: Visualized portions of the vertebral arteries demonstrate normal caliber, and join to form a normal appearing basilar artery. Near origin of the right posterior cerebral arteries. The flow within the posterior cerebral arteries is normal and symmetric. No stenoses, occlusions, or aneurysms. IMPRESSION: 1. Normal variation as above. 2. Otherwise negative cerebral MR angiography. No significant change compared to 12/31/2022, allowing for differences in modality. Dictated by: Ole Aguilar M.D. on 02/03/2023 at 8:20 Approved by: Ole Aguilar M.D. on 02/03/2023 at 8:22
--- NOTE | 2023-02-02 | DI.MRI.S_ITS ---
PROCEDURE: MR HEAD/BRAIN WO CON INDICATIONS: VERTIGO, PERSISTANT DIZZINESS, FULLNESS IN EARS TECHNIQUE: Non-contrast axial T1 spin echo, axial T2 fast spin echo, sagittal and axial FLAIR, coronal T2 fast spin echo, axial gradient echo, axial diffusion and ADC through the brain. COMPARISON: [facility], CT, CT HEAD/BRAIN WO CON, 12/31/2022, 16:43. FINDINGS: Image quality: Excellent. CSF spaces: Ventricles appear symmetric in size and shape. Basal cisterns are patent. No extra-axial fluid collections. Brain: No intracranial bleeds or mass effects. There is cerebral volume loss for age. There are periventricular and deep white matter chronic small vessel ischemic changes. Brainstem appears normal. Diffusion-weighted images show no acute ischemic insults. No chronic ischemic insults. Normal intravascular flow voids are present. Skull and face: Calvarial bone marrow is normal in signal. Orbits are normal. Sinuses: Sinuses and mastoids are clear. IMPRESSION: 1. Mild volume loss and small vessel ischemic disease. 2. No acute process. No recent infarct. Dictated by: Ole Aguilar M.D. on 02/03/2023 at 8:24 Approved by: Ole Aguilar M.D. on 02/03/2023 at 8:25
== END ==
PROVIDERS: PCP Internal Medicine; Referring Provider Internal Medicine; Visit Provider Internal Medicine
DX: R42 Dizziness and giddiness (principal); H93.8X3 Other specified disorders of ear, bilateral
CPT/HCPCS: 70544; 70551

== ENCOUNTER 2023-02-27 09:13 | Day surgery (SDC) | payer MEDICARE, OTHER, SELFPAY ==
[2023-02-22 10:19] VITALS: BMI 25.9
[2023-02-27] VITALS (14 sets, daily range): BP systolic 131–153; BP diastolic 70–89; PULSE 61–99; RESP 12–19; TEMP 35.8–36.7; O2SAT 95–100; BMI 25.9
--- NOTE | 2023-02-27 | PATH_ITS ---
[facility] Accession Number: [id number] No. of containers..01 Tissue . 01 Material submitted: . prostate - PROSTATE CHIPS . 01 Diagnosis: Prostate Chips, Transurethral Prostate Resection (TURP): Prostatic tissue, 11 grams, with glandular/stromal hypertrophy and mixed acute and chronic inflammation. Benign prostatic urothelial mucosa also present. Negative for prostatic intraepithelial neoplasia and invasive carcinoma. MRV 03/06/2023 1545 Local . 01 Electronically signed: . Charline Robles MD, Pathologist NPI- [id number] . 01 Gross description: . The specimen is received in formalin labeled with the patient's name, , and prostate chips, consists of multiple fragments of pimentel, rubbery soft tissue weighing 11 grams and aggregating to 6.1 x 4.1 x 1.5 cm. The specimen is submitted entirely in cassettes A1-A7. ([id number]) /MRV 03/02/2023 1848 Local . 01 Pathologist provided ICD-10: N32.0 . 01 CPT . 513038 Specimen Comment: A courtesy copy of this report has been sent to [phone] Performed at: 01 [facility] [address] [address] [address] [facility], [place], [place] [id number] MD Gómez Carlson MD Phone: [phone]
[2023-02-27] MEDS: LACTATED RINGERS 1,000 ML 21 ML IV (09:39)
[2023-02-27] MEDS: ACETAMINOPHEN IV 1,000 MG/100 ML VIAL 400 MG IV (09:40)
--- NOTE | 2023-02-27 09:53 | PM.PREOP ---
Pre-operative Note COVID-19 Criteria for continued procedure: Expected advancement of disease process, Possibility delay results in more complex future surgery or treatment, Deterioration of the patient's condition or overall health, Delay expected to result in less-positive ultimate med/surg outcome and Non-surgical alternatives not available or appropriate per current SOC Interval Note History & Physical reviewed/Exam performed by Physician: Yes Changes to H&P: No
[2023-02-27] MEDS: CEFAZOLIN 2 GM/100 ML PREMIX 100 ML IV (10:30)
--- NOTE | 2023-02-27 10:40 | SUR.OPER ---
Lithotomy on padded OR bed, head on pillow, arms secured on padded arm boards at <90 degrees abduction. Legs secured in padded yellow fins stirrups.
--- NOTE | 2023-02-27 11:29 | P.OP_ITS ---
Operative Date/Time/Diagnoses Date of procedure: 02/27/23 Time of procedure: 11:20 Pre-op diagnosis: 1. Bladder outlet obstruction Post-op diagnosis: same Procedure & Clinicians Procedure: 1. Transurethral resection of prostate. Same procedure as scheduled: Yes Indications: 1. Bladder outlet obstruction. Surgeon: Jeronimo Molina Click Yes if Unassisted: Yes Anesthesia Type: General Operative Notes Findings: 1. Urethra-normal caliber annular stricture or lesion. 2. External sphincter-coapted with overlying urothelium. 3. Prostate 3.5 cm in length with obstructing trilobar hyperplasia. 4. Bladder-1 to 2+ trabeculation. Normal ureteral orifices bilaterally. No evidence of stone, tumor, foreign body, or diverticulum. Closure Type: not applicable Specimen(s): other (Prostate chips) Applied: catheter ([address] hematuria catheter) Estimated Blood Loss (mL): 5 Blood products transfused: none Procedure in detail: Patient was positioned supine was administered general anesthesia. The patient was then repositioned in semilithotomy and the lower abdomen, genitalia, and groin were then prepped and draped in sterile fashion. The resectoscope was then advanced into the lower urinary tract under direct visualization with the findings as described above. Next, the working element was fitted with the resecting loop. TUR incisions were then made from the bladder neck to the level of the verumontanum at the 1 and 11 positions. There intervening tissue was resected anteriorly. Next, left lateral lobe, followed by the right lateral lobe tissue was resected from bladder neck to the verumontanum. Finally, the median lobe was carefully resected in the same manner. Intentional, apical, kissing lateral lobe tissue remained intact at and just beyond the level of the verumontanum bilaterally. Hemostasis was attained with electrocautery. All chips were irrigated successfully from the bladder and prostate fossa using the [facility] evacuator. The bladder was and partially filled and the resectoscope was removed. A [address] Luu catheter was then positioned in the bladder utilizing a catheter guide. The balloon was inflated to 30 cc. Catheter was then hand irrigated clear and then placed to normal saline continuous bladder irrigation. The patient was then repositioned in supine and the catheter was secured to the thigh with a adhesive StatLock. The patient was then awakened, transferred to [facility], transferred to recovery in stable condition. Complications: none Post-operative Condition: stable Disposition: Acute Care
--- NOTE | 2023-02-27 12:52 | SUR.PHASEI ---
Pt transferred to room 229 in stretcher. Alert, oriented. CBI infusing. SBAR report to Carlene Villalobos. 1 belongings bag.
[2023-02-27 15:15] LABS: MRSA (Nasal) PCR DETECTED (Not Detect)
--- NOTE | 2023-02-27 19:17 | PC.NURSE ---
Day shift: Pt arrived via stretcher from PACU at approximately 1235. Pt A&ox4, able to transfer self from stretcher to bed in room 229. Continuous bladder irrigation continued from PACU. VSS, pt tolerating general diet. Luu urine pink and clear. Call light within reach and pt verbalizes understanding in use of call light. Bed locked, bed alarm active. Care ongoing.
[2023-02-27] MEDS: SODIUM CHLORIDE 0.9% FLUSH 10 ML IV (20:51)
[2023-02-27] MEDS: NAPROXEN 250 MG TABLET 500 MG PO (20:51)
[2023-02-28] MEDS: ATORVASTATIN 20 MG TABLET PO (08:22)
[2023-02-28 08:23] VITALS: BP 123/60; PULSE 80; RESP 18; TEMP 36.7; O2SAT 99
[2023-02-28] MEDS: CHOLECALCIFEROL (VITAMIN D3) 1,000 UNIT TABLET 1000 UNIT PO (08:23)
[2023-02-28] MEDS: FLUTICASONE 120 SPRAY/16 GM SPRAY.SUSP NASAL (08:23)
[2023-02-28] MEDS: NAPROXEN 250 MG TABLET 500 MG PO (08:23)
[2023-02-28] MEDS: SODIUM CHLORIDE 0.9% FLUSH 10 ML IV (08:24)
--- NOTE | 2023-02-28 12:54 | PM.DS.1 ---
History of Present Illness History of Present Illness Date Patient Seen: 02/28/23 Time Patient Seen: 12:00 Chief complaint: OPB Narrative: The patient is a 77-year-old male with a long history of mixed obstructive and irritative voiding symptoms admitted on 02/27/2023, and underwent uncomplicated Transurethral resection of the prostate under general anesthetic. Discharge Providers Provider Date of admission: 02/27/2023 Discharge Date: 02/28/23 Primary care physician: Teresa Rivero MD Discharge provider: Jeronimo Molina MD Summary Hospital Course Discharge Diagnosis: 1. Bladder outlet obstruction. Hospital Course: The patient was admitted on the morning of 02/27/2023 and underwent uncomplicated Transurethral resection of the prostate under general anesthetic. His postoperative course was unremarkable that he tolerated general diet immediately postoperatively, required no postoperative narcotic analgesics, and was able to ambulate without assistance on the morning of 02/28/2023. Exam Vital Signs (past 8 hours): - 02/28/23 08:23 Temperature 98.1 F Pulse Rate 80 Respiratory Rate 18 Blood Pressure 123/60 Pulse Oximetry 99 Oxygen Flow Rate 0 Oxygen Delivery Method Room Air Oxygen Flow Rate 0 Narrative Exam Narrative: Sitting upright in bedside chair in no distress. Abdomen-scaphoid, soft, nontender. Genitalia-indwelling Luu catheter with nery to light dubon output. No clots. Extremities-no edema, tenderness, or pallor. Objective Labs Labs: Laboratory Results - last 24 hr 02/27/23 13:28 Nasal Screen MRSA (PCR) Detected H PFSH Medical History Arthritis BPH w urinary obs/LUTS Healthy adult Osteoarthritis Social History marital status: number of children: 0 household members: spouse Smoking Status: Never smoker alcohol intake: current Type(s) of exercise: walking frequency: 5-6 times per week Discharge Assessment & Plan Assessment and Plan Assessment: 1. Stable postop day 1 status post Transurethral resection of prostate. 2. Indwelling Luu catheter. 3. Pathology pending. Plan of Treatment: 1. Discharge home today with indwelling Luu catheter. 2. Schedule supervise voiding trial in Urology Clinic as outpatient. 3. Discuss surgical path report when final. Discharge Plan Discharge Plan Patient Disposition: Home Provider Discharge Comment: Please contact the urology clinic after discharge to schedule your follow-up appointment Discharge orders & Medications Discharge Orders: Discharge (Order); Ordered 02/28/23 Ordered By: Jeronimo Molina Prescriptions: New cephalexin 250 mg capsule 250 mg PO TID Qty: 10 0RF Continued atorvastatin 20 mg tablet 20 mg PO DAILY diclofenac sodium 75 mg tablet,delayed release (DR/EC) 75 mg PO BID fluticasone propionate [Allergy Relief (fluticasone)] 50 mcg/actuation spray,suspension 1 spray intranasal BID Rx Instructions: administer into each nostril vitamin D 3 1,000 mg PO DAILY clobestasol ointment See Rx Instructions .ROUTE .COMPLEX Rx Instructions: 0.05 % topically Follow up/Referrals: Teresa Rivero MD [Primary Care Provider] - Diet/Activity/Treatments Diet: Diet as Tolerated Activity: Do not lift objects greater than 15 lb x 6 weeks. Catheter: 2-way Luu Catheter comment: Leg bag-use when out of home as instructed. Large bag-use in home. Skin/Wound/Dressing Care Report to your healthcare provider any signs of infection, such as:: chills, fever, night sweats, increased pain and unusual drainage Visit Report/Discharge Packet Instructions: How to Care for Your Luu Catheter -- Male, DI for Transurethral Resection of the Prostate Stand Alone Forms: Surgery Discharge Discharge Data Primary Care Provider: Teresa Rivero Attending Provider: Jeronimo Molina Quality VTE Deep Vein Thrombosis/Pulmonary Embolism Present on Admission: No
--- NOTE | 2023-02-28 13:27 | CM.DANOTE ---
DCP Assessment: Patient is a 77yo male here following a planned bladder surgery with Dr. Molina on 02/27. PCP Teresa Rivero Payer Medicare and [employer] PATIENT EXPERIENCE COORDINATOR reviewed EMR. PATIENT EXPERIENCE COORDINATOR entered room and introduced self and role. Patient was getting dressed to d/c home and appeared A/Ox4. Patient was accompanied by spouse Lubna ([phone]). Patient is active and independent at baseline. Drives and uses no DME. Spouse is able to support him at home with his recovery needs. Patient and spouse report no needs from CM team at this time. Plan: patient will d/c home with spouse in POV. no needs identified at this time. CM team will continue to follow as needed. MEERA Amor Discharge Planning/Care Management CM Discharge Assessment Start: 02/28/23 13:26 Freq: Status: Active Protocol: Document 02/28/23 13:26 SL (Rec: 02/28/23 13:27 [id number]) Discharge Planning Assessment Assigned Pulverizer MEERA Pennington DPOA/Assigned Designee Name Lubna (sposue) Contact Information [phone] Advance Directives? No History Provided By Patient,Significant Other, Medical Record Prior Living Arrangements House Household Members spouse Type of transporation used prior to Drives own vehicle admit Independent with ADL's Yes Is patient alert and oriented? Yes Barriers to Discharge No Discharge Plan Home Transportation Arrangement family in POV Whiteboard Updated in Patient Room with Yes name and ext. # of Pulverizer Review Status In Process Next Review Type Continued Stay Review Pre-Anesthesia Assessment Start: 02/22/23 10:19 Freq: Status: Complete Protocol: Document 02/22/23 10:19 TC (Rec: 02/22/23 10:38 TC [id number]) Pre-Anesthesia Assessment Patient Information Reviewed Via Chart Review H&P Completed Within 30 Days Yes Diagnostic Results BMP/CMP,CBC,EKG,PT/INR, Urinalysis,Other Comment 12/31/22 Primary Care Provider Teresa Rivero Medical Clearance Received Not Applicable Seen Specialist in Last 12 Months Yes Specialist Seen Emergency,Urologist,Other Comment [facility] Primary Language Maltese Height 170 cm Weight 74.8 kg Body Mass Index (BMI) 25.9 Anesthesia Review Requested No Academic Specialist No alcohol intake frequency 0-2 drinks per day Smoking Status Never smoker Substance Use Type does not use Patient is completely paralyzed or No completely immobile Is patient on oxygen? No Does patient have MCKEON/SOB No Hx Sleep Apnea No Currently Taking a Beta Pat No Hx Syncope or Dizziness Yes: see [facility] visit note 01/02 and ED note 12/31/22 Anti-Coagulant Therapy No Has a Asset Recovery Specialist No Cardiac Testing Yes: EKG Hx Pacemaker/ICD No Pacemaker Rep Required? No Genitourinary Symptoms Change in Urinary Stream, Difficulty Urinating Bladder Pattern Retention Urinary Catheter Present No Hx Urinary Self Catheterization No Diabetes No Marital Status Lives With spouse Support System Spouse Patient Discharge Plan Description Return Home Who Can We Speak to About Patient's Care Lubna Health Care Proxy/Next of Kin Lubna Health Care Proxy Emergency Contact Name Lubna Emergency Contact Advance Directives? No Power of Pre Sales Technical Consultant No
== END 2023-02-28 13:20 | disposition home or self-care (01) ==
LOC: OR 09:14 → AC 09:14 → ICU 13:17
PROVIDERS: PCP Internal Medicine; Referring Provider Specialist; Visit Provider Specialist
PROC: 0VT08ZZ Resection of Prostate, Via Natural or Artificial Opening Endoscopic (ICD-10-PCS; CPT 52601; principal; 2023-02-27 10:45)
DX: N32.0 Bladder-neck obstruction (principal); N40.1 Benign prostatic hyperplasia with lower urinary tract symptoms
CPT/HCPCS: 52601; 87797; J0131; J0690; J1170; J2405; J2704; J3010

== ENCOUNTER → 2023-04-06 10:25 | Outpatient (CLI) | payer MEDICARE, OTHER, SELFPAY ==
[2023-02-27 09:15] VITALS: BMI 25.9
== END ==
PROVIDERS: PCP Internal Medicine; Referring Provider Specialist; Visit Provider Specialist
DX: Z09 Encounter for follow-up examination after completed treatment for conditions other than malignant neoplasm (principal); N40.1 Benign prostatic hyperplasia with lower urinary tract symptoms; N13.8 Other obstructive and reflux uropathy
CPT/HCPCS: 36415; 51798; 81002; 84153; 87086

== ENCOUNTER → 2023-04-20 12:24 | Outpatient (CLI) | payer MEDICARE, OTHER, SELFPAY ==
[2023-04-20 08:18] VITALS: BMI 25.9
== END ==
PROVIDERS: PCP Internal Medicine; Visit Provider Urology
DX: N40.1 Benign prostatic hyperplasia with lower urinary tract symptoms (principal); N13.8 Other obstructive and reflux uropathy
CPT/HCPCS: 51798; 87086

== ENCOUNTER → 2023-04-25 13:58 | Outpatient (CLI) | payer MEDICARE, OTHER, SELFPAY ==
[2023-04-20 08:18] VITALS: BMI 25.9
== END ==
PROVIDERS: PCP Internal Medicine; Visit Provider Specialist
DX: N40.1 Benign prostatic hyperplasia with lower urinary tract symptoms (principal); N13.8 Other obstructive and reflux uropathy; R39.9 Unspecified symptoms and signs involving the genitourinary system
CPT/HCPCS: 51798; 81002; 87086

== ENCOUNTER → 2023-04-27 08:20 | Outpatient (CLI) | payer MEDICARE, OTHER, SELFPAY ==
[2023-04-20 08:18] VITALS: BMI 25.9
== END ==
PROVIDERS: PCP Internal Medicine; Visit Provider Specialist
DX: N40.1 Benign prostatic hyperplasia with lower urinary tract symptoms (principal); N13.8 Other obstructive and reflux uropathy; N99.114 Postprocedural urethral stricture, male, unspecified; R39.9 Unspecified symptoms and signs involving the genitourinary system
CPT/HCPCS: 52281; 81002; 87086; 99215

== ENCOUNTER → 2023-06-08 10:46 | Outpatient (CLI) | payer MEDICARE, OTHER, SELFPAY ==
[2023-04-20 08:18] VITALS: BMI 25.9
== END ==
PROVIDERS: PCP Internal Medicine; Visit Provider Specialist
DX: N40.1 Benign prostatic hyperplasia with lower urinary tract symptoms (principal); N13.8 Other obstructive and reflux uropathy; R39.9 Unspecified symptoms and signs involving the genitourinary system; N99.114 Postprocedural urethral stricture, male, unspecified
CPT/HCPCS: 81002; 87077; 87086; 87186; 99214

== ENCOUNTER → 2023-10-03 08:41 | Outpatient (CLI) | payer MEDICARE, OTHER, SELFPAY ==
[2023-04-20 08:18] VITALS: BMI 25.9
== END ==
PROVIDERS: PCP Internal Medicine; Visit Provider Specialist
DX: R39.9 Unspecified symptoms and signs involving the genitourinary system (principal); Z87.448 Personal history of other diseases of urinary system; Z87.898 Personal history of other specified conditions
CPT/HCPCS: 51798; 81002; 87077; 87086; 87186; 99214

== ENCOUNTER 2023-11-14 10:44 | Day surgery (SDC) | payer MEDICARE, OTHER, SELFPAY ==
[2023-04-20 08:18] VITALS: BMI 25.9
[2023-11-06 11:57] VITALS: BMI 25.2
[2023-11-14] VITALS (7 sets, daily range): BP systolic 126–151; BP diastolic 71–83; PULSE 59–78; RESP 14–22; TEMP 36.2–36.4; O2SAT 97–99; BMI 25.0
[2023-11-14] MEDS: ACETAMINOPHEN 325 MG TABLET 975 MG PO (11:20)
--- NOTE | 2023-11-14 11:46 | SUR.OPER ---
Supine on padded OR bed, head on pillow, arms padded and tucked at sides, legs uncrossed, safety belt at thigh, .
--- NOTE | 2023-11-14 11:56 | PM.PREOP ---
Pre-operative Note COVID-19 COVID-19 status: Not tested Interval Note History & Physical reviewed/Exam performed by Physician: Yes Changes to H&P: No ASA Class (for procedural sedation): II
[2023-11-14] MEDS: CEFAZOLIN 2 GM/100 ML PREMIX 100 ML IV (12:16)
[2023-11-14] MEDS: BUPIVACAINE 0.5% (PF) 30 ML VIAL INJ (12:52)
[2023-11-14] MEDS: EPINEPHrine 1 MG/ML 0.15 MG IM (12:55)
--- NOTE | 2023-11-14 13:28 | P.OP_ITS ---
Operative Date/Time/Diagnoses Date of procedure: 11/14/23 Time of procedure: 13:28 Pre-op diagnosis: Left inguinal hernia Post-op diagnosis: other (Left sliding indirect hernia) Procedure & Clinicians Procedure: Laparoscopic left inguinal hernia repair with mesh Same procedure as scheduled: Yes Surgeon: Jeffery Ribeiro Staff Electrical Engineer: Agustin Tapia Anesthesia Type: General Operative Notes Procedure in detail: The patient was given preoperative antibiotics. The patient was brought to the operating room, placed on the table in the supine position with the arms tucked and general anesthesia was induced. The abdomen was prepped and draped in the usual fashion. A time-out was performed. A 1 cm transverse incision was created superior to the umbilicus and dissection was carried down to the fascia. The fascia was grasped with a Wilton clamp to elevate the abdominal wall. The fascia was scored transversely with cautery. A Peon clamp was used to noble the peritoneum. The Jina port was placed and the abdomen was insufflated to 15 mmHg. The camera was inserted, there was no evidence of any injury from the entry. There was an indirect left sliding inguinal hernia containing a loop of sigmoid colon. 5 mm ports were placed under direct vision in the mid left and mid right abdomen. The patient was positioned in Trendelenburg. We created left peritoneal flap. The peritoneum was dissected off the left cord structures and the Choco's ligament was exposed. A large left Bard mesh was brought in and placed over the defect with the medial edge against Choco's ligament. We then closed the peritoneal flap with a running 3-0 barbed suture. We took one last look around the abdomen and saw no other abnormalities. The suture was removed and accounted for. The 5 mm ports were removed under direct vision. The abdomen was desufflated. The Jina port was removed. Additional local was injected into the fascia and the fascial incision was closed with 2 interrupted 0 Vicryl sutures. The skin incisions were closed with 4 Monocryl, Steri-Strips and Band-Aids. EBL: 10 mL Agustin CORRALES provided assistance with exposure, retraction and closure of incisions. Post-operative Condition: stable Disposition: PACU
--- NOTE | 2023-11-14 14:15 | SUR.PHASEI ---
Dr. Ribeiro ordered hydrocodone. notified patient had Tylenol at 1120. VTO change to oxycodone.
[2023-11-14] MEDS: OXYCODONE IR 5 MG TABLET PO (14:24)
== END 2023-11-14 15:02 | disposition home or self-care (01) ==
PROVIDERS: PCP Internal Medicine; Referring Provider Surgery; Visit Provider Surgery
PROC: 0YQ64ZZ Repair Left Inguinal Region, Percutaneous Endoscopic Approach (ICD-10-PCS; CPT 49650; principal; 2023-11-14 12:15)
DX: K40.90 Unilateral inguinal hernia, without obstruction or gangrene, not specified as recurrent (principal)
CPT/HCPCS: 49650; J0171; J0690; J1100; J2405; J2704; J3010

== ENCOUNTER → 2023-12-18 13:22 | Outpatient (CLI) | payer MEDICARE, OTHER, SELFPAY ==
[2023-04-20 08:18] VITALS: BMI 25.9
--- NOTE | 2023-12-18 13:23 | DI.RAD.S_ITS ---
PROCEDURE: XR LUMBAR SPINE MIN 4V INDICATIONS: BACK PAIN TECHNIQUE: 5 views of the lumbar spine were acquired, including bilateral oblique views. COMPARISON: [facility], CR, XR LUMBAR SPINE 2-3V, 09/14/2022, 11:47. FINDINGS: Bones: 5 nonrib-bearing vertebrae are present. Levoconvex curvature of the lumbar spine with apex at L4. Marked multilevel degenerative changes with osteophytosis, disc height loss and facet arthropathy, worse at L3-L4 where there is partial ankylosis. No vertebral body compression fractures. Multilevel osseous neural foraminal narrowing, severe at L4-L5 and L5-S1. No suspicious bony lesions. Soft tissues: Overlying bowel gas pattern is normal. No suspicious soft tissue calcifications. Calcification of the abdominal aorta. Oblique images: No pars defects. IMPRESSION: 1. No acute bony abnormality. 2. Marked multilevel degenerative changes with partial ankylosis at L3-L4, slightly progressed compared to prior. Multilevel osseous neural foraminal narrowing, severe at L4-L5 and L5-S1. If clinical symptoms persist, consider MRI for further evaluation. Dictated by: Dorothea Phillips M.D. on 12/18/2023 at 14:50 Approved by: Dorothea Phillips M.D. on 12/18/2023 at 14:54
== END ==
PROVIDERS: PCP Internal Medicine; Referring Provider Anesthesiology; Visit Provider Anesthesiology
DX: M47.816 Spondylosis without myelopathy or radiculopathy, lumbar region (principal); M48.061 Spinal stenosis, lumbar region without neurogenic claudication; M48.07 Spinal stenosis, lumbosacral region; M54.9 Dorsalgia, unspecified
CPT/HCPCS: 72110

== ENCOUNTER → 2023-12-19 09:49 | Outpatient (CLI) | payer MEDICARE, OTHER, SELFPAY ==
[2023-04-20 08:18] VITALS: BMI 25.9
--- NOTE | 2023-12-19 09:50 | DI.RAD.S_ITS ---
PROCEDURE: XR THORACIC SPINE 3V INDICATIONS: Back pain TECHNIQUE: 3 views of the thoracic spine were acquired. COMPARISON: None. FINDINGS: Bones: No fractures or dislocations. No suspicious bony lesions. 12 pairs of ribs are noted, and appear intact where visualized. Slight rightward curvature of the thoracolumbar spine. Diffuse idiopathic skeletal hyperostosis. Mild, multilevel degenerative disc disease. Soft tissues: No paravertebral stripe thickening. IMPRESSION: No acute bony abnormality. Diffuse idiopathic skeletal hyperostosis. Mild, multilevel degenerative disc disease. Dictated by: Pratik Christine M.D. on 12/19/2023 at 12:06 Approved by: Pratik Christine M.D. on 12/19/2023 at 12:07
== END ==
PROVIDERS: PCP Internal Medicine; Referring Provider Anesthesiology; Visit Provider Anesthesiology
DX: M51.34 Other intervertebral disc degeneration, thoracic region (principal); M85.88 Other specified disorders of bone density and structure, other site
CPT/HCPCS: 72072

== ENCOUNTER 2024-01-24 14:21 | Outpatient (CLI) | payer MEDICARE, OTHER, SELFPAY ==
[2023-04-20 08:18] VITALS: BMI 25.9
[2024-01-24] VITALS (9 sets, daily range): BP systolic 126–149; BP diastolic 59–77; PULSE 60–73; RESP 13–20; TEMP 36.3; O2SAT 97–100
[2024-01-24] MEDS: MIDAZOLAM 2 MG/2 ML VIAL 1 MG IV (14:59)
--- NOTE | 2024-01-24 15:00 | DI.RAD.S_ITS ---
PROCEDURE: PAIN L/S FACET INJ/BLK 1ST EDD INDICATIONS: spondylosis COMPARISON: None. FINDINGS: Fluoroscopic spot filming was performed to verify placement of spinal needles at the bilateral L3, L4, and L5 level(s), as labeled on the films. Appropriate location(s) of the needle tip(s) was confirmed by injection of iodinated contrast. IMPRESSION: Intraoperative fluoroscopy for medial branch block at several levels as described. Dictated by: Dottie Poasda M.D. on 01/25/2024 at 1:27 Approved by: Dottie Posada M.D. on 01/25/2024 at 1:27
[2024-01-24] MEDS: iopamidoL 15 ML VIAL 3 ML INJ (15:20)
[2024-01-24] MEDS: BUPIVACAINE 0.5% (PF) 10 ML VIAL INJ (15:21)
--- NOTE | 2024-01-24 16:30 | P.PCN_ITS ---
Date/Time/Diagnoses Date of procedure: 01/24/24 Time of procedure: 15:00 Procedure Notes Physician: Blair Hill Total Fluoroscopy time (seconds): 17 Total sedation minutes: 13 Procedure in detail & Post-procedure care: Bilateral L3, 4, 5 Lumbar Medial Branch Blocks Indications: Art is presenting for treatment of lumbar spondylosis with low back pain. Preoperative diagnosis: Lumbar spondylosis Postoperative diagnosis: Same Pre-procedure History: Patient demonstrates today moderate to severe non- radicular back pain without neurologic deficit aggravated by hyperextension yes Back pain greater than leg pain? yes Patient today has tenderness over the suspected joint(s) yes History of post-traumatic injury? no Hypertrophic arthropathy yes Back pain associated with suspected motion segment instability, hypermobility or pseudoarthrosis no Focused Examination: Ax3 Mood and affect are normal Vital Signs: VSS ASA: 2 Consent: Following review of allergies and potential side effects/complications, including, but not necessarily limited to, infection, allergic reaction, local tissue breakdown, stroke, temporary or permanent nerve injury, paralysis, and possible , the patient indicated that they understood and agreed to proceed.? An informed consent document was signed by the patient, witnessed by a nurse and placed in the patient's chart.? Additionally, other treatment options including medications and physical therapy were reviewed with the patient. All questions were answered. Site was then marked. Anesthesia: After review of previous anesthetic history and IV conscious sedation, the patient was deemed safe to proceed with today's procedure with IV conscious sedation. IV sedation was accomplished with midazolam 1 mg administered by the RN after order by Dr. Hill. Sedation was titrated to patient comfort during the course of the procedure. Patient remained responsive to all verbal commands. Position: Prone Monitoring: NIBP, Pulse oximetry, 3 lead EKG Needle used: 22 ga 3.5 inch spinal needle Contrast: Isovue 300M Injectate: 0.5% bupivacaine 1 mL per site Procedure: The patient was brought into the procedure room and positioned into the prone position. Skin was prepped with a Chloraprep solution, allowed to air dry, and then draped in sterile fashion.? The right L4-5 and L5-S1 facet joints were visually identified with fluoroscopy. Lidocaine 1% was used to anesthetize the skin over each target destination with a 25ga needle. A 22 ga, 3.5 inch spinal needle was advanced to the location of the medial branch at the junction of the superior articular process and the transverse process at L4,5 and the base of the SAP of the sacrum using intermittent fluoroscopy in the AP view. Isovue 300M contrast 0.2ml was injected at each level outlining the medial borders for each level and the base of the SAP of the sacrum in the AP and lateral views. There was no evidence of vascular or intrathecal uptake. The above injectate was slowly injected at each target destination. The left L4-5 and L5-S1 facet joints were visually identified with fluoroscopy. Lidocaine 1% was used to anesthetize the skin over each target destination with a 25ga needle. A 22 ga, 3.5 inch spinal needle was advanced to the location of the medial branch at the junction of the superior articular process and the transverse process at L4,5 and the base of the SAP of the sacrum using intermittent fluoroscopy in the AP view. Isovue 300M contrast 0.2ml was injected at each level outlining the medial borders for each level and the base of the SAP of the sacrum in the AP and lateral views. There was no evidence of vascular or intrathecal uptake. The above injectate was slowly injected at each target destination. At the end of the procedure the needles were withdrawn and Band- Aids were applied for a dressing. Post Procedure: Patient was taken to the recovery and monitored. The patient was provided a Pain Log to continue to record the patient's response to the target- specific procedure prior to the patient's follow-up visit with the referring physician. Patient was stable upon discharge. Detailed post procedure instructions were provided. Patient was asked to call in the event of worsening pain, fever, weakness, numbness or bladder or bowel incontinence. Based on the medial branches blocked today, if the patient meets insurance criteria for radiofrequency, the treatment should result in the denervation of the bilateral L4-5 and L5-S1 facet joint nerves. We would expect to denervate a total of 4 facets during the radiofrequency ablation.
== END 2024-01-24 15:31 | disposition home or self-care (01) ==
LOC: RAD 14:22
PROVIDERS: PCP Internal Medicine; Referring Provider Anesthesiology; Visit Provider Anesthesiology
DX: M47.816 Spondylosis without myelopathy or radiculopathy, lumbar region (principal)
CPT/HCPCS: 64493; 64494; 99152; J2250

== ENCOUNTER → 2024-02-03 08:21 | Outpatient (CLI) | payer MEDICARE, OTHER, SELFPAY ==
[2023-04-20 08:18] VITALS: BMI 25.9
== END ==
PROVIDERS: PCP Internal Medicine; Visit Provider Nurse Practitioner Family
DX: R30.0 Dysuria (principal)
CPT/HCPCS: 87077; 87086; 87186

== ENCOUNTER → 2024-03-27 10:35 | Outpatient (CLI) | payer MEDICARE, OTHER, SELFPAY ==
[2023-04-20 08:18] VITALS: BMI 25.9
[2024-03-27 13:10] LABS: Prostate Specific Antigen 1.07 ng/mL (0.10-4.00)
== END ==
PROVIDERS: PCP Internal Medicine; Referring Provider Urology; Visit Provider Urology
DX: R33.9 Retention of urine, unspecified (principal)
CPT/HCPCS: 36415; 84153

== ENCOUNTER → 2024-04-04 09:10 | Outpatient (CLI) | payer MEDICARE, OTHER, SELFPAY ==
[2023-04-20 08:18] VITALS: BMI 25.9
== END ==
PROVIDERS: PCP Internal Medicine; Visit Provider Urology
DX: Z12.5 Encounter for screening for malignant neoplasm of prostate (principal); N40.1 Benign prostatic hyperplasia with lower urinary tract symptoms; N13.8 Other obstructive and reflux uropathy; R39.9 Unspecified symptoms and signs involving the genitourinary system; Z87.448 Personal history of other diseases of urinary system
CPT/HCPCS: 51798; 81002; 87077; 87086; 87186; 99214

== ENCOUNTER → 2024-06-06 09:03 | Outpatient (CLI) | payer MEDICARE, OTHER, SELFPAY ==
[2023-04-20 08:18] VITALS: BMI 25.9
--- NOTE | 2024-06-06 09:04 | DI.MRI.S_ITS ---
PROCEDURE: MR LUMBAR SPINE WO CON INDICATIONS: Chronic progressive low back pain TECHNIQUE: Noncontrast sagittal T1 spin echo and T2 fast echo, sagittal STIR, and T2 fast spin echo through the lumbar spine. In cases with scoliosis, additional coronal T2 fast spin echo may be performed. COMPARISON: [facility], CR, XR LUMBAR SPINE MIN 4V, 12/18/2023, 13:31. FINDINGS: Image quality: Diagnostic, with note made of motion artifact. Alignment and Curvature: Mild dextroconvex scoliotic curvature is seen. There is minimal retrolisthesis at L1-L2 and L2-L3. Minimal retrolisthesis is seen at L4-L5. Minimal anterolisthesis is seen at L5-S1. Bone Marrow: Marrow is of normal overall signal. No acute vertebral body compression fractures. Spinal Cord: Conus medullaris terminates at the L1 level. Visualized cord demonstrates normal signal and size. Paraspinous Soft Tissues: No paravertebral masses. T12-L1: Moderate loss of disc height is seen. Loss of disc signal is seen. No significant disc bulge is seen. No neural foraminal narrowing is seen. Minimal central canal narrowing is seen. L1-L2: Moderate loss of disc height is seen. Loss of disc signal is seen. Mild generalized disc bulge is seen. There is a superimposed central disc protrusion. Mild facet joint hypertrophy is seen. Moderate bilateral neural foraminal narrowing can be seen, left worse than right. Minimal central canal narrowing is seen. L2-L3: Moderate loss of disc height is seen. Loss of disc signal is seen. At least moderate disc bulge is seen. There is a central disc osteophyte protrusion. Moderate facet joint hypertrophy is seen. Associated hypertrophy of the ligamentum flavum can be seen. There is moderate to severe bilateral neural foraminal narrowing seen, with an associated degree of compression seen upon the exiting nerve roots. Moderate to severe central canal narrowing is seen, as on series 6, image 18. L3-L4: There is a degree of vertebral body fusion seen at this level. Mild to moderate disc bulge is seen. Mild facet joint hypertrophy is seen. There is moderate left-sided and at least moderate right-sided neural foraminal narrowing. There is a degree of compression upon the exiting right L3 nerve root. Moderate central canal narrowing is seen. L4-L5: Moderate loss of disc height is seen. Loss of disc signal is seen. Moderate disc bulge is seen, which is eccentric to the right side. There is a central disc osteophyte protrusion. Moderate facet joint hypertrophy is seen. There is at least moderate bilateral neural foraminal narrowing seen. There is a degree of compression seen upon the exiting nerve roots. Mild to moderate central canal narrowing is seen. L5-S1: At least moderate loss of disc height and disc signal can be seen. Moderate disc bulge is seen, with a central disc osteophyte protrusion. Moderate facet joint hypertrophy is seen. There is moderate to severe bilateral neural foraminal narrowing seen, with an associated degree of compression seen upon the exiting nerve roots. Mild to moderate central canal narrowing can be seen. IMPRESSION: Multiple levels of significant lumbar spine degenerative change can be seen. Moderate to severe central canal narrowing at the L2-L3 level. Several sites of significant neural foraminal narrowing can be seen, with associated exiting nerve root compression. Mild dextroconvex scoliotic curvature is seen. Dictated by: Izaiah Mcdaniel M.D. on 06/06/2024 at 11:03 Approved by: Izaiah Mcdaniel M.D. on 06/06/2024 at 11:08
== END ==
PROVIDERS: PCP Internal Medicine; Referring Provider Physical Medicine & Rehabilitation; Visit Provider Physical Medicine & Rehabilitation
DX: M47.816 Spondylosis without myelopathy or radiculopathy, lumbar region (principal); M47.817 Spondylosis without myelopathy or radiculopathy, lumbosacral region; M48.061 Spinal stenosis, lumbar region without neurogenic claudication; M48.07 Spinal stenosis, lumbosacral region; M41.9 Scoliosis, unspecified
CPT/HCPCS: 72148

== ENCOUNTER 2024-07-11 12:40 | Outpatient (CLI) | payer MEDICARE, OTHER, SELFPAY ==
[2023-04-20 08:18] VITALS: BMI 25.9
[2024-07-11] VITALS (13 sets, daily range): BP systolic 128–171; BP diastolic 64–94; PULSE 60–69; RESP 12–20; TEMP 36.3; O2SAT 95–100
--- NOTE | 2024-07-11 12:49 | DI.RAD.S_ITS ---
PROCEDURE: PAIN L/S FACET INJ/BLK 1ST EDD INDICATIONS: RADICULOPATHY COMPARISON: [facility], , PAIN L/S FACET INJ/BLK 1ST EDD, 01/24/2024, 15:02. FINDINGS/IMPRESSION: Fluoroscopic spot filming was performed to verify placement of spinal needles at the L3-L5 level(s), as labeled on the films. Appropriate location(s) of the needle tip(s) was confirmed by injection of iodinated contrast. Dictated by: Carlos Alberto Rodriguez M.D. on 07/11/2024 at 16:47 Approved by: Carlos Alberto Rodriguez M.D. on 07/11/2024 at 16:47
[2024-07-11] MEDS: MIDAZOLAM 2 MG/2 ML VIAL IV (13:58)
[2024-07-11] MEDS: LIDOCAINE 2% INJ SDV 5ML 1 ML INJ (14:01)
[2024-07-11] MEDS: iopamidoL 15 ML VIAL 3 ML INJ (14:01)
[2024-07-11] MEDS: LIDOCAINE 1% 20 ML 5 ML INJ (14:02)
--- NOTE | 2024-07-11 14:18 | PM.PROC.IR.1 ---
Date/Time/Diagnoses Date of procedure: 07/11/24 Time of procedure: 14:18 Pre-procedure diagnosis: 1. FACET ARTHROPATHY Post-procedure diagnosis: same Procedure Notes Procedure: 1. BILATERAL L3, L4 AND L5 DIAGNOSTIC MB BLOCKS Indications: Micah is referred by Dr. Rivero for treatment of Bilateral Axial LBP. Physician: Kirby Mujica Total Fluoroscopy time (seconds): 12 Total sedation minutes: 13 Complications: none Procedure in detail & Post-procedure care: DESCRIPTION OF PROCEDURE Fluoroscopically guided, contrast-controlled bilateral L3, L4 AND L5 medial branch blocks with 0.5cc of 2% Lidocaine. Following review of allergy and review of potential side effects and complications, including, but not necessarily limited to, infection, allergic reaction, local tissue breakdown, nerve injury, paralysis, stroke and possible , the patient indicated that the patient understood and agreed to proceed. An informed consent document was signed by the patient, witnessed by a nurse, and placed in the patient's chart. After review of previous anaesthesic history and IV conscious sedation the patient was deemed safe to proceed with today's procedure with IV conscious sedation as ASA class II designation. Safety time-out was performed to confirm patient ID, procedure to be performed and site of procedure. IV sedation was accomplished with a combination of 2mg of Versed was administered by the RN after DO order, titrated to patient comfort during the course of the procedure while the patient remained responsive to all verbal commands In the prone position, following sterile prep and drape of the lumbar region, the right L3, L4 AND L5 anatomical location of the medial branch of the dorsal ramus was identified fluoroscopically. Subsequently an anesthetic skin wheal using 1% lidocaine solution was initiated at each of the anatomical spots. Subsequently then a 22-gauge 3.5-inch spinal needle was atraumatically introduced and advanced under fluoroscopic guidance at each of the corresponding sites at the right L3, L4 and L5 MB. After negative aspiration, 0.2cc of Isovue 200 was injected, confirming placement without vascular or intrathecal uptake. Subsequently then 0.5cc of 2% Lidocaine solution was injected at each of the corresponding sites at the right L3, L4 and L5 medial branch locations. The identical procedure was replicated on the left. The patient tolerated the procedure well without signs or symptoms of complications. The patient tolerated the procedure well without signs or symptoms of complications prior to transfer to the recovery area continued monitoring without incident. Post-procedure, the patient was monitored initiating provocative activities to measure the amount of relief from block of the facetogenic pain. The patient reported a VAS of 7 prior to the procedure and a post-procedure VAS of 1. It has been a pleasure to assist in the diagnostic and therapeutic care of your patient. POST OP INSTRUCTIONS The patient was provided with a Pain Log to complete over the next several hours and subsequent days prior to the patient's follow up with the ordering physician. If the patient has education courses sales representative relief to the solution applied, then they may be a candidate for medial branch rhizotomy. The patient is aware, was provided, once again, with a Pain Log and will follow up with the referring physician for review and clinical correlation
== END 2024-07-11 15:00 | disposition home or self-care (01) ==
PROVIDERS: PCP Internal Medicine; Referring Provider Physical Medicine & Rehabilitation; Visit Provider Physical Medicine & Rehabilitation
DX: M47.816 Spondylosis without myelopathy or radiculopathy, lumbar region (principal)
CPT/HCPCS: 64493; 64494; 99152; J2250

== ENCOUNTER 2024-09-26 10:27 | Outpatient (CLI) | payer MEDICARE, OTHER, SELFPAY ==
[2024-07-15 10:43] VITALS: BMI 25.9
[2024-09-26] VITALS (12 sets, daily range): BP systolic 130–170; BP diastolic 67–89; PULSE 60–67; RESP 16–18; TEMP 36.4; O2SAT 97–100
--- NOTE | 2024-09-26 10:29 | DI.RAD.S_ITS ---
PROCEDURE: PAIN L/S MED/LAT N RFA BILAT INDICATIONS: Bilateral L3-L4 and L5 medial branch RFA COMPARISON: None. FINDINGS/IMPRESSION: Fluoroscopic spot filming was performed to verify placement of spinal needles at the bilateral L3 through L5 level(s), as labeled on the films. Appropriate location(s) of the needle tip(s) was confirmed by injection of iodinated contrast. Dictated by: Pratik Christine M.D. on 09/26/2024 at 17:12 Approved by: Pratik Christine M.D. on 09/26/2024 at 17:12
[2024-09-26] MEDS: MIDAZOLAM 2 MG/2 ML VIAL IV (12:00)
[2024-09-26] MEDS: BUPIVACAINE 0.5% (PF) 10 ML VIAL 5 ML INJ (12:06)
[2024-09-26] MEDS: LIDOCAINE 1% 20 ML 5 ML INJ (12:06)
--- NOTE | 2024-09-26 12:44 | P.PCN_ITS ---
Date/Time/Diagnoses Date of procedure: 09/26/24 Time of procedure: 12:44 Pre-procedure diagnosis: 1. RECALCITRANT FACET ARTHROPATHY Post-procedure diagnosis: same Procedure Notes Procedure: 1. BILATERAL L3, L4 AND L5 MEDIAL BRANCH RADIOFREQUENCY NEUROTOMY Indications: Micah is referred by Dr. Rivero for treatment of facet arthropathy. Physician: Kirby Mujica Total Fluoroscopy time (seconds): 15 Total sedation minutes: 35 Complications: none Procedure in detail & Post-procedure care: DESCRIPTION OF PROCEDURE Bilateral L3, L4 and L5 medial branch radiofrequency neurotomy The patient is well known to this clinic having undergone previous facet injections with good but temporary relief. The patient has experienced appropriate, concordant relief with previous facet and median branch blocks but the patient's pain has been recalcitrant to further conservative measures. Therefore, based upon the patient's relief and persistent symptoms, the patient is considered an appropriate candidate for facet rhizotomy. All of the patient's questions regarding the risks versus benefits of the procedure, including, but not limited to, bleeding, infection, temporary as well as lasting nerve injury, paralysis, stroke, and , as well treatment alternatives were answered to satisfaction. After obtaining informed consent, denial of pertinent drug allergies, as well as being made aware of the potential risks of bleeding, infection, spinal cord trauma, paralysis, temporary and permanent nerve damage, seizure, stroke, and possible , the patient was brought to the fluoroscopy suite and positioned prone on the fluoroscopy table. After review of previous anaesthesic history and IV conscious sedation the patient was deemed safe to proceed with today's procedure with IV conscious sedation as ASA class II designation. Safety time-out was performed to confirm patient ID, procedure to be performed and site of procedure. IV sedation was accomplished with a combination of 2mg of Versed administered by the RN after DO order, titrated to patient comfort during the course of the procedure while the patient remained responsive to all verbal commands. The lumbar region was prepped in usual sterile fashion and covered with a fenestrated drape in the usual sterile fashion. Appropriate monitors applied including pulse oximeter, pulse, and blood pressure for regular monitoring throughout the procedure. After local infiltration using 1% lidocaine, under fluoroscopic guidance, a 10- cm RF insulated needle with a 10-mm active tip was positioned parallel to the junction of the right the superior articulating process where the L5 medial branch resides. Needle placement was confirmed with motor stimulation of .5v on the right which produced local stimulation without radicular component. The stimulation was then increased to 2v with, once again, only local multifidus stimulation without radicular component. The needle was then removed and the identical procedure was performed along the length of the right L4 medial branch with motor stimulation at .7v on the right. The identical procedure was once again performed along the length of the right L3 and medial branch with motor s timulation of .5v on the right. The medial branches were then anesthetised with 0.5% marcaine. This was then followed by two discreet lesions performed at 80 degrees Celsius for 90 seconds each. The identical procedures were repeated on the left. The patient tolerated the procedure well without signs or symptoms of complications prior to transfer to the recovery area continued monitoring without incident. The patient was then transferred to the recovery area where they were observed for an appropriate period of time after the injection. The patient reported a VAS score of 7 prior to the procedure and a post-procedure VAS of 0. POST OP INSTRUCTIONS The patient was provided a Pain Log to continue to record the patient's response to the target-specific procedure prior to the patient's follow-up visit with the referring physician. Additionally, specific post-injection care instructions and a contact number to our office were provided if concerns arise regarding possible complications associated with the procedure are suspected.
== END 2024-09-26 12:54 | disposition home or self-care (01) ==
PROVIDERS: PCP Internal Medicine; Referring Provider Physical Medicine & Rehabilitation; Visit Provider Physical Medicine & Rehabilitation
DX: M47.816 Spondylosis without myelopathy or radiculopathy, lumbar region (principal)
CPT/HCPCS: 64635; 64636; 99152; 99153; J2250

== ENCOUNTER → 2024-10-10 15:40 | Outpatient (CLI) | payer MEDICARE, OTHER, SELFPAY ==
[2024-07-15 10:43] VITALS: BMI 25.9
[2024-10-11 11:50] LABS: Appearance Urine UA CLOUDY; Bilirubin Urine UA NEGATIVE (NEGATIVE); Color Urine UA YELLOW; Glucose Urine UA NEGATIVE (Negative); Ketones Urine UA TRACE (NEGATIVE); Leukocyte Esterase Urine UA 2+ (NEGATIVE); Nitrite Urine UA NEGATIVE (Negative); Occult Blood Urine UA NEGATIVE (Negative); Protein Urine UA TRACE (Negative); Specific Gravity Urine UA 1.025 (1.000-1.035); Urobilinogen Urine UA 0.2 E.U./dL (0.2)
[2024-10-11 11:56] LABS: Bacteria Urine Many (>30); Culture Indicated Urine Specimen Cultured; RBC Urine 1-5/HPF (0-5/HPF); Squamous Epithelial Cell Urine 1-5 /HPF (0-5/HPF); Urine Volume 10mL (spun); WBC Urine 30-100/HPF (0-5/HPF)
== END ==
PROVIDERS: PCP Internal Medicine; Visit Provider Urology
DX: R39.9 Unspecified symptoms and signs involving the genitourinary system (principal)
CPT/HCPCS: 81001; 87077; 87086; 87186

== ENCOUNTER → 2024-10-16 11:21 | Outpatient (CLI) | payer MEDICARE, OTHER, SELFPAY ==
[2024-07-15 10:43] VITALS: BMI 25.9
== END ==
PROVIDERS: PCP Internal Medicine; Visit Provider Urology
DX: N40.1 Benign prostatic hyperplasia with lower urinary tract symptoms (principal); N13.8 Other obstructive and reflux uropathy; Z12.5 Encounter for screening for malignant neoplasm of prostate; R39.9 Unspecified symptoms and signs involving the genitourinary system; Z87.448 Personal history of other diseases of urinary system
CPT/HCPCS: 51798; 81002; 87086; 99213

== ENCOUNTER → 2024-10-31 11:16 | Outpatient (CLI) | payer MEDICARE, OTHER, SELFPAY ==
[2024-07-15 10:43] VITALS: BMI 25.9
[2024-10-31 13:18] LABS: Bacteria Urine None Seen; Culture Indicated Urine Cult Not Indicated; Mucus Urine 1+ (Negative); RBC Urine None Seen (0-5/HPF); Squamous Epithelial Cell Urine 0-1 /HPF (0-5/HPF); Urine Volume 10mL (spun); WBC Urine 1-5/HPF (0-5/HPF)
== END ==
LOC: LAB 11:18
PROVIDERS: PCP Internal Medicine; Referring Provider Urology; Visit Provider Urology
DX: N40.1 Benign prostatic hyperplasia with lower urinary tract symptoms (principal); N13.8 Other obstructive and reflux uropathy; Z87.448 Personal history of other diseases of urinary system
CPT/HCPCS: 81015

== ENCOUNTER 2024-11-21 14:09 | Outpatient (CLI) | payer MEDICARE, OTHER, SELFPAY ==
[2024-07-15 10:43] VITALS: BMI 25.9
[2024-11-21] VITALS (9 sets, daily range): BP systolic 133–164; BP diastolic 67–82; PULSE 63–78; RESP 12–16; TEMP 36.6; O2SAT 97–100
[2024-11-21] MEDS: MIDAZOLAM 2 MG/2 ML VIAL IV (15:30)
[2024-11-21] MEDS: DEXAMETHASONE 10 MG/ML VIAL INJ (15:34)
[2024-11-21] MEDS: iopamidoL 15 ML VIAL 3 ML INJ (15:34)
[2024-11-21] MEDS: BETAMETHASONE 30 MG/5 ML MDV 12 MG INJ (15:35)
[2024-11-21] MEDS: BUPIVACAINE 0.25% (PF) VIAL 2 ML INJ (15:35)
--- NOTE | 2024-11-21 15:46 | P.PCN_ITS ---
Date/Time/Diagnoses Date of procedure: 11/21/24 Time of procedure: 15:46 Pre-procedure diagnosis: 1. HNP WITH RADICULAR FEATURES, 2. MULTILEVEL CENTRAL STENOSIS, Post-procedure diagnosis: same Procedure Notes Procedure: 1. FLUOROSCOPICALLY GUIDED CONTRAST CONTROLLED INTERLAMINAR EPIDURAL STEROID INJECTION -L4/5 Indications: Micah is referred by Dr. Rivero for treatment of Bilateral Foraminal Stenosis R>L LE symptoms. Physician: Kirby Mujica Total Fluoroscopy time (seconds): 7 Total sedation minutes: 12 Complications: none Procedure in detail & Post-procedure care: FINDINGS Multilevel Central Spinal Stenosis with Nerve Root Compression DESCRIPTION OF PROCEDURE Fluoroscopically guided, contrast-controlled L4/5 translaminar epidural steroid injection. Following review of allergy and review of potential side effects and complications, including, but not necessarily limited to, infection, allergic reaction, local tissue breakdown, temporary as well as permanent nerve injury, paralysis, stroke and possible , the patient indicated that the patient understood and agreed to proceed. An informed consent document was signed by the patient, witnessed by a nurse, and placed in the patient's chart. Additionally, other treatment options including modalities, medications, and physical therapy were reviewed with the patient. After review of previous anaesthesic history and IV conscious sedation the patient was deemed safe to proceed with today?s procedure with IV conscious sedation as ASA class II designation. Safety time-out was performed to confirm patient ID, procedure to be performed and site of procedure. IV sedation was accomplished with a combination of 2mg of Versed was administered by the RN after DO order, titrated to patient comfort during the course of the procedure while the patient remained responsive to all verbal commands In the prone position, following sterile prep and drape of the lumbar region, the L4/5 translaminar space was identified fluoroscopically. The skin was anesthetized via a 25-gauge, 1.5inch needle with 1% lidocaine solution. At this point, a 22-gauge short bevel spinal needle was atraumatically introduced and a dvanced under fluoroscopic guidance into the region of the L4/5 translaminar space. Depth was confirmed on lateral view. Radiological data, including multiple fluoroscopic views of the lumbar spine, reveal a spinal needle at the L4/5 translaminar space. Lateral views then show placement of the needle in the epidural space. Subsequent views show contrast material flowing superiorly and inferiorly in the epidural space. No vascular or intrathecal uptake is observed. At this point, using loss of resistance technique with saline and air, the epidural space was entered. This was confirmed following negative aspiration with injection of approximately 1.5cc of Isovue 200, showing excellent epidural flow without vascular or intrathecal uptake. At this point, 1cc of 1% lidocaine solution combined with 3cc or 10mg of dexamethasone and 12mg betamethasone was injected without incident. The patient tolerated the procedure well without signs or symptoms of complications prior to transfer to the recovery area continued monitoring without incident. The patient was then transferred to the recovery area where they were observed for an appropriate period of time after the injection. The patient reported a VAS score of 6 prior to the procedure and a post- procedure VAS of 0. POST OP INSTRUCTIONS The patient was provided a Pain Log to continue to record their response to the target-specific procedure prior to follow-up visit with their referring physician. Additionally, specific post-injection care instructions and a contact number to our office were provided if concerns arise regarding possible complications associated with the procedure are suspected.
== END 2024-11-21 16:05 | disposition home or self-care (01) ==
LOC: RAD 14:11
PROVIDERS: PCP Internal Medicine; Referring Provider Physical Medicine & Rehabilitation; Visit Provider Physical Medicine & Rehabilitation
DX: M51.16 Intervertebral disc disorders with radiculopathy, lumbar region (principal); M48.061 Spinal stenosis, lumbar region without neurogenic claudication
CPT/HCPCS: 62323; 99152; J0702; J1100; J2250; J3490

== ENCOUNTER → 2025-01-30 09:46 | Outpatient (CLI) | payer MEDICARE, OTHER, SELFPAY ==
[2024-07-15 10:43] VITALS: BMI 25.9
[2025-01-30 09:59] LABS: Appearance Urine UA SL CLOUDY; Bilirubin Urine UA NEGATIVE (NEGATIVE); Color Urine UA YELLOW; Glucose Urine UA NEGATIVE (Negative); Ketones Urine UA NEGATIVE (NEGATIVE); Leukocyte Esterase Urine UA 2+ (NEGATIVE); Nitrite Urine UA NEGATIVE (Negative); Occult Blood Urine UA NEGATIVE (Negative); Protein Urine UA NEGATIVE (Negative); Specific Gravity Urine UA 1.020 (1.000-1.035); Urobilinogen Urine UA 1.0 E.U./dL (0.2); pH Urine UA 6.0 (4.5-8.0)
[2025-01-30 10:11] LABS: Culture Indicated Urine Specimen Cultured
== END ==
PROVIDERS: PCP Internal Medicine; Visit Provider Urology
DX: R39.9 Unspecified symptoms and signs involving the genitourinary system (principal)
CPT/HCPCS: 81001; 87077; 87086; 87186

== ENCOUNTER → 2025-02-09 12:59 | Outpatient (CLI) | payer MEDICARE, OTHER, SELFPAY ==
[2024-07-15 10:43] VITALS: BMI 25.9
== END ==
PROVIDERS: PCP Internal Medicine; Visit Provider Physician Assistant
DX: R30.0 Dysuria (principal)
CPT/HCPCS: 81002; 87077; 87086; 87186

== ENCOUNTER → 2025-02-27 15:15 | Outpatient (CLI) | payer MEDICARE, OTHER, SELFPAY ==
[2024-07-15 10:43] VITALS: BMI 25.9
== END ==
PROVIDERS: PCP Internal Medicine; Visit Provider Urology
DX: R39.9 Unspecified symptoms and signs involving the genitourinary system (principal); N40.1 Benign prostatic hyperplasia with lower urinary tract symptoms; N13.8 Other obstructive and reflux uropathy; Z87.448 Personal history of other diseases of urinary system; Z12.5 Encounter for screening for malignant neoplasm of prostate; Z68.24 Body mass index [BMI] 24.0-24.9, adult
CPT/HCPCS: 81002; 87077; 87086; 87186; 99214

== ENCOUNTER → 2025-05-08 11:40 | Outpatient (CLI) | payer MEDICARE, OTHER, SELFPAY ==
[2024-07-15 10:43] VITALS: BMI 25.9
== END ==
PROVIDERS: PCP Internal Medicine; Visit Provider Urology
DX: R39.9 Unspecified symptoms and signs involving the genitourinary system (principal); N40.1 Benign prostatic hyperplasia with lower urinary tract symptoms; N13.8 Other obstructive and reflux uropathy; Z87.448 Personal history of other diseases of urinary system; Z12.5 Encounter for screening for malignant neoplasm of prostate; Z68.25 Body mass index [BMI] 25.0-25.9, adult
CPT/HCPCS: 51798; 81002; 87086; 99213

== ENCOUNTER 2025-07-15 12:22 | Outpatient (CLI) | payer MEDICARE, OTHER, SELFPAY ==
[2025-07-15] VITALS (8 sets, daily range): BP systolic 113–158; BP diastolic 66–74; PULSE 58–69; RESP 10–20; TEMP 36.6; O2SAT 96–100; BMI 25.9
[2025-07-15] MEDS: MIDAZOLAM 2 MG/2 ML VIAL IV (13:40)
[2025-07-15] MEDS: LIDOCAINE 2% INJ MDV 20ML 5 ML INJ (13:47)
--- NOTE | 2025-07-15 13:57 | P.PCN_ITS ---
Date/Time/Diagnoses Date of procedure: 07/15/25 Time of procedure: 13:57 Pre-procedure diagnosis: Lumbar Facet Arthropathy Post-procedure diagnosis: same Procedure Notes Procedure: 1. Right L4, L5 and S1 MB BLOCKS SA Indications: Micah is referred by Dr. Rivero for treatment of Right Axial LBP. Physician: Kirby Mujica Total Fluoroscopy time (seconds): 7 Total sedation minutes: 11 Complications: none Procedure in detail & Post-procedure care: DESCRIPTION OF PROCEDURE Fluoroscopically guided, contrast-controlled right L4, L5 and S1 medial branch blocks with 0.5cc of 2% Lidocaine. Following review of allergy and review of potential side effects and complications, including, but not necessarily limited to, infection, allergic reaction, local tissue breakdown, nerve injury, paralysis, stroke and possible , the patient indicated that the patient understood and agreed to proceed. An informed consent document was signed by the patient, witnessed by a nurse, and placed in the patient's chart. After review of previous anaesthesic history and IV conscious sedation the patient was deemed safe to proceed with today?s procedure with IV conscious sedation as ASA class II designation. Safety time-out was performed to confirm patient ID, procedure to be performed and site of procedure. IV sedation was accomplished with a combination of 2mg of Versed was administered by the RN after DO order, titrated to patient comfort during the course of the procedure while the patient remained responsive to all verbal commands In the prone position, following sterile prep and drape of the lumbar region, the right L4, L5 and S1 anatomical location of the medial branch of the dorsal ramus was identified fluoroscopically. Subsequently an anesthetic skin wheal using 1% lidocaine solution was initiated at each of the anatomical spots. Subsequently then a 22-gauge 3.5-inch spinal needle was atraumatically introduced and advanced under fluoroscopic guidance at each of the corresponding sites at the right L4, L5 and S1 MB. After negative aspiration, 0.2 cc of Isovue 200 was injected, confirming placement without vascular or intrathecal uptake. Subsequently then 0.5 cc of 2% Lidocaine solution was injected at each of the corresponding sites at the right L4, L5 and S1 medial branch locations. The patient tolerated the procedure well without signs or symptoms of complications. The procedure tolerated the procedure well without signs or symptoms of complications prior to transfer to the recovery area continued monitoring without incident. Post-procedure, the patient was monitored initiating provocative activities to measure the amount of relief from block of the facetogenic pain. The patient reported a VAS of 7 prior to the procedure and a post-procedure VAS of 1. It has been a pleasure to assist in the diagnostic and therapeutic care of your patient. POST OP INSTRUCTIONS The patient was provided with a Pain Log to complete over the next several hours and subsequent days prior to the patient's follow up with the ordering physician. If the patient has oral and maxillofacial surgery resident relief to the solution applied, then they may be a candidate for medial branch rhizotomy. The patient is aware, was provided, once again, with a Pain Log and will follow up with the referring physician for review and clinical correlation.
== END 2025-07-15 14:15 | disposition home or self-care (01) ==
LOC: RAD 12:22
PROVIDERS: PCP Internal Medicine; Referring Provider Physical Medicine & Rehabilitation; Visit Provider Physical Medicine & Rehabilitation
DX: M47.816 Spondylosis without myelopathy or radiculopathy, lumbar region (principal); M47.817 Spondylosis without myelopathy or radiculopathy, lumbosacral region
CPT/HCPCS: 64493; 64494; 99152; J2250

== ENCOUNTER → 2025-07-28 09:21 | Outpatient (CLI) | payer MEDICARE, OTHER, SELFPAY ==
[2025-07-15 09:15] VITALS: BMI 25.9
[2025-07-28 10:49] LABS: Prostate Specific Antigen 1.08 ng/mL (0.10-4.00)
== END ==
PROVIDERS: PCP Internal Medicine; Referring Provider Urology; Visit Provider Urology
DX: N40.1 Benign prostatic hyperplasia with lower urinary tract symptoms (principal); N13.8 Other obstructive and reflux uropathy; Z12.5 Encounter for screening for malignant neoplasm of prostate
CPT/HCPCS: 36415; 84153